=== PATIENT | male | born 1925 | race Caucasian/White ===

== ENCOUNTER 2017-02-07 10:57 | Emergency (ER) | payer MEDICARE, MEDICAID ==
[2017-02-07 11:12] VITALS: BP 158/94
[2017-02-07] MEDS ORDERED: Albuterol 0.083% 2.5 MG/3 ML Neb Soln NEB ONE (11:24)
--- NOTE | 2017-02-07 11:30 | EDM.PDOC ---
ED HPI GENERAL MEDICAL PROBLEM - General Chief Complaint: Respiratory Problem Stated Complaint: DIFFICULTY BREATHING Time Seen by Provider: 02/07/17 11:26 Source of Information: Reports: Patient, Family (son) History Limitations: Reports: No Limitations - History of Present Illness INITIAL COMMENTS - FREE TEXT/NARRATIVE: Pt of [facility] in [facility]. With cough since , now worsening. Pt is more short of breath. With fever. Appetite down. Coughing up phlegm, Onset: Sudden Onset Date: 02/04/17 Duration: Getting Worse Improves with: Reports: None Worsens with: Reports: Movement Associated Symptoms: Reports: Cough, Fever/Chills, Headaches, Shortness of Breath - Related Data Allergies Allergy/AdvReac Type Severity Reaction Status Date / Time Sulfa (Sulfonamide Allergy Rash Verified 08/01/16 09:26 Antibiotics) Home Meds: Home Meds Ascorbic Acid 500 mg PO BID 01/22/15 [History] Digoxin [Lanoxin] 125 mcg PO DAILY 01/22/15 [History] Finasteride [Proscar] 5 mg PO DAILY 01/22/15 [History] Glucosamine Sulfate 1,500 mg PO BID 01/22/15 [History] Tamsulosin HCl 0.4 mg PO DAILY 01/22/15 [History] Triamcinolone Acetonide [Triamcinolone Acetonide 0.1% Oint] 1 film TOP BID PRN 01/22/15 [History] Calcium Carbonate/Vitamin D3 [Calcium 600-Vit D3 400 Tablet] 1 tab PO DAILY [History] Furosemide 10 mg PO DAILY 03/12/16 [History] Warfarin Sodium 1 tab PO ASDIRECTED 03/12/16 [History] Warfarin [Coumadin] 1 tab PO ASDIRECTED 03/12/16 [History] Calcium Carbonate/Vitamin D3 [Calcium 600-Vit D3 800 Tablet] 1 each PO DAILY 09/04 [History] Cayenne 40,000 units PO BID 08/01/16 [History] Acetaminophen [Tylenol] 650 mg PO Q6H 02/07/17 [History] Ascorbic Acid [Vitamin C] 500 mg PO BID 02/07/17 [History] Ibuprofen [Motrin] 600 mg PO Q6H PRN 02/07/17 [History] Ondansetron [Zofran ODT] 4 mg PO Q8HR PRN 02/07/17 [History] Oxybutynin [Oxybutynin ER] 5 mg PO DAILY 02/07/17 [History] Polyethylene Glycol 3350 [Miralax] 17 gm PO 02/07/17 [History] Ranitidine HCl 300 mg PO DAILY 02/07/17 [History] Past Medical History HEENT History: Reports: Hard of Hearing, Impaired Vision, Other (See Below) Other HEENT History: hearing aids bilateral ears Cardiovascular History: Reports: Afib, CAD, Heart Murmur, [place], Pacemaker Other Cardiovascular History: Edema Genitourinary History: Reports: BPH, Retention, Urinary Musculoskeletal History: Reports: Other (See Below) Other Musculoskeletal History: chronic fatigue Neurological History: Reports: Other (See Below) Other Neuro History: cva Psychiatric History: Reports: Dementia Oncologic (Cancer) History: Reports: Prostate - Infectious Disease History Infectious Disease History: Reports: Rheumatic Fever, Shingles Other Infectious Disease History: unknown - Past Surgical History HEENT Surgical History: Reports: Cataract Surgery, Tonsillectomy GI Surgical History: Reports: Colonoscopy Social & Family History - Family History Family Medical History: Unobtainable - Tobacco Use Smoking Status *Q: Never Smoker Second Hand Smoke Exposure: No - Caffeine Use Caffeine Use: Reports: Tea - Alcohol Use Days Per Week of Alcohol Use: 0 - Recreational Drug Use Recreational Drug Use: No - Living Situation & Occupation Living situation: Reports: Assisted Living Occupation: Retired ED ROS GENERAL - Review of Systems Review Of Systems: See Below Constitutional: Reports: Fever, Chills, Decreased Appetite HEENT: Reports: Rhinitis, Sinus Problem Respiratory: Reports: Shortness of Breath, Wheezing, Cough, Sputum Cardiovascular: Reports: No Symptoms GI/Abdominal: Reports: No Symptoms Musculoskeletal: Reports: No Symptoms Skin: Reports: No Symptoms Neurological: Reports: No Symptoms Psychiatric: Reports: No Symptoms ED EXAM, GENERAL - Physical Exam Exam: See Below Exam Limited By: No Limitations General Appearance: Alert, WD/WN, No Apparent Distress Ears: Normal External Exam, Normal Canal, Hearing Grossly Normal, Normal TMs Ear Exam: Bilateral Ear: Auricle Normal, Canal Normal, TM normal Nose: Normal Inspection, Normal Mucosa, No Blood, Clear Rhinorrhea Throat/Mouth: Normal Inspection, Normal Lips, Normal Teeth, Normal Gums, Normal Oropharynx, Normal Voice, No Airway Compromise Head: Atraumatic, Normocephalic Neck: Normal Inspection, Supple, Non-Tender, Full Range of Motion Respiratory/Chest: Rhonchi (throughout) Cardiovascular: Normal Peripheral Pulses, Regular Rate, Rhythm, No Edema, No Gallop, No JVD, No Murmur, No Rub Extremities: Normal Inspection, Normal Range of Motion, Non-Tender, Normal Capillary Refill, No Pedal Edema Neurological: Alert, Oriented, CN II-XII Intact, Normal Cognition, Normal Gait, Normal Reflexes, No Motor/Sensory Deficits Skin Exam: Warm, Dry, Intact, Normal Color, No Rash Course - Vital Signs Last Recorded V/S: Last Vital Signs Temp 98.6 F 02/07/17 11:08 Pulse 103 H 02/07/17 11:08 Resp 28 H 02/07/17 11:08 BP 158/94 H 02/07/17 11:08 Pulse Ox 95 02/07/17 11:08 - Orders/Labs/Meds Orders: Active Orders 24 hr Category Date Time Status RT Aerosol Therapy [RC] ASDIRECTED Care 02/07/17 11:24 Active RT Aerosol Therapy [RC] ASDIRECTED Care 02/07/17 13:11 Active Chest 2V [CR] Stat Exams 02/07/17 11:25 Taken CULTURE RESPIRATORY + SMEAR [RM] Stat Lab 02/07/17 11:49 Results Albuterol/Ipratropium [DuoNeb 3.0-0.5 MG/3 ML] Med 02/07/17 13:11 Once 3 ml NEB ONETIME ONE Medication Orders Albuterol/Ipratropium (Duoneb 3.0-0.5 Mg/3 Ml) 3 ml NEB ONETIME ONE Stop: 02/07/17 13:12 Labs: Laboratory Tests 02/07/17 02/07/17 02/07/17 Range/Units 11:24 11:25 11:25 WBC 9.8 (4.5-11.0) K/uL RBC 4.08 L (4.30-5.90) M/uL Hgb 12.6 (12.0-15.0) g/dL Hct 38.3 L (40.0-54.0) % MCV 94 (80-98) fL MCH 31 (27-31) pg MCHC 33 (32-36) % Plt Count 275 (150-400) K/uL Neut % (Auto) 81 H (36-66) % Lymph % (Auto) 8 L (24-44) % [place] % (Auto) 10 H (2-6) % Eos % (Auto) 1 L (2-4) % Baso % (Auto) 0 (0-1) % PT 37.4 H (9.5-12.0) sec INR 3.40 H (0.80-1.20) Sodium 136 L (140-148) mmol/L Potassium 4.1 (3.6-5.2) mmol/L Chloride 99 L (100-108) mmol/L Carbon Dioxide 26 (21-32) mmol/L Anion Gap 15.1 H (5.0-14.0) mmol/L BUN 15 (7-18) mg/dL Creatinine 1.1 (0.8-1.3) mg/dL Est Cr Clr Drug Dosing 47.01 mL/min Estimated GFR (MDRD) > 60 (>60) Glucose 131 H (74-106) mg/dL Calcium 8.0 L (8.5-10.1) mg/dL Meds: Medications Generic Name Dose Route Start Last Admin Trade Name Freq PRN Reason Stop Dose Admin Albuterol/Ipratropium 3 ml 02/07/17 13:11 Duoneb 3.0-0.5 Mg/3 Ml NEB 02/07/17 13:12 ONETIME ONE Discontinued Medications Generic Name Dose Route Start Last Admin Trade Name Freq PRN Reason Stop Dose Admin Albuterol 2.5 mg 02/07/17 11:24 02/07/17 11:49 Proventil Neb Soln NEB 02/07/17 11:25 2.5 mg ONETIME ONE Administration Ceftriaxone Sodium 1 gm 02/07/17 12:07 02/07/17 12:34 Rocephin IM 02/07/17 12:08 Not Given ONETIME ONE Ceftriaxone Sodium 1 gm/ 0 gm 02/07/17 12:28 02/07/17 12:34 Lidocaine HCl 2.1 ml IM 02/07/17 12:29 1 inj ONETIME ONE Administration Methylprednisolone Sodium Succinate 125 mg 02/07/17 12:08 02/07/17 12:35 Solu-Medrol IM 02/07/17 12:09 125 mg ONETIME ONE Administration Departure - Departure Time of Disposition: 13:19 Disposition: Home, Self-Care 01 Clinical Impression: Pneumonia Qualifiers: Pneumonia type: due to unspecified organism Laterality: right Lung location: lower lobe of lung Qualified Code(s): J18.1 - Lobar pneumonia, unspecified organism - Discharge Information Instructions: Community-Acquired Pneumonia, Adult, [id number] Referrals: PCP,None [Primary Care Provider] - Forms: ED Department Discharge Additional Instructions: Chest xray shows right lower lobe pneumonia. Pt with oxygen saturation of 93-95 % while in the ER. CBC normal with elevated monocytes. INR slightly elevated. Electrolytes show mild hyponatremia. Pt responds well to Albuterol nebulizer UD. Able to cough up large amounts of clear, thick sputum. Culture pending. Rocephin 1gm IM given. Solumedrol 125mg IM given. Duoneb given prior to discharge. Pt to return to assisted living with Albuterol neb treatments QID x 2 weeks, then BID x 2 weeks, then daily x 1 week then DC, Zpak as directed x 5 days to start tomorrow. Staff will need to monitor for worsening shortness of breath or dehydration. Increase fluids. May use Robitussin AC 1 tsp QID prn cough as a suppressant as well. Will need to reduce Coumadin to 5mg on Wednesday and Wednesday with 2.5mg on other days of the week and repeat INR in 2 weeks. Discussed plan of care with family. - Problem List & Annotations (1) Pneumonia SNOMED Code(s): 647825287 Code(s): J18.9 - PNEUMONIA, UNSPECIFIED ORGANISM Status: Acute Priority: Medium Current Visit: Yes Qualifiers: Pneumonia type: due to unspecified organism Laterality: right Lung location: lower lobe of lung Qualified Code(s): J18.1 - Lobar pneumonia, unspecified organism - My Orders Last 24 Hours: My Active Orders 02/07/17 11:24 RT Aerosol Therapy [RC] ASDIRECTED 02/07/17 11:25 Chest 2V [CR] Stat 02/07/17 11:49 CULTURE RESPIRATORY + SMEAR [RM] Stat 02/07/17 13:11 RT Aerosol Therapy [RC] ASDIRECTED Albuterol/Ipratropium [DuoNeb 3.0-0.5 MG/3 ML] 3 ml NEB ONETIME ONE - Assessment/Plan Last 24 Hours: My Active Orders 02/07/17 11:24 RT Aerosol Therapy [RC] ASDIRECTED 02/07/17 11:25 Chest 2V [CR] Stat 02/07/17 11:49 CULTURE RESPIRATORY + SMEAR [RM] Stat 02/07/17 13:11 RT Aerosol Therapy [RC] ASDIRECTED Albuterol/Ipratropium [DuoNeb 3.0-0.5 MG/3 ML] 3 ml NEB ONETIME ONE
[2017-02-07] MEDS ORDERED: cefTRIAXone 1 GM Vial IM ONE (12:07)
[2017-02-07] MEDS ORDERED: methylPREDNISolone Sodium Succinate 125 MG/2 ML SDV IM ONE (12:08)
[2017-02-07] MEDS ORDERED: cefTRIAXone 1 GM, Lidocaine 1% 2.1 ML IM ONE ×2 (12:28)
[2017-02-07] MEDS ORDERED: Albuterol/Ipratropium 3.0-0.5 MG/3 ML Neb Soln NEB ONE (13:11)
--- NOTE | 2017-02-08 08:34 | CR ---
Mild cardiomegaly. Emphysematous change. Slight hazy density at the cardiac location only on the lat eral view could relate to developing infiltrate or atelectasis.
== END 2017-02-07 14:11 | disposition home or self-care (01) ==
LOC: JP.ED 10:57
DX: J18.1 Lobar pneumonia, unspecified organism (principal); I48.91 Unspecified atrial fibrillation; I25.10 Atherosclerotic heart disease of native coronary artery without angina pectoris; I25.2 Old myocardial infarction; Z88.5 Allergy status to narcotic agent; Z79.01 Long term (current) use of anticoagulants; Z79.899 Other long term (current) drug therapy; Z98.49 Cataract extraction status, unspecified eye; Z98.890 Other specified postprocedural states; Z95.0 Presence of cardiac pacemaker
CPT/HCPCS: 36415; 71020; 80048; 85025; 85610; 87070; 87205; 94640; 96372; 99284; J0696; J2930; J7620

== ENCOUNTER 2017-02-09 09:02 | Inpatient (IN) | payer MEDICARE, MEDICAID ==
[2017-02-09] MEDS ORDERED: Lactated Ringers 1,000 ML IV ONE ×3 (09:30→16:43)
[2017-02-09] MEDS ORDERED: Sodium Chloride 0.9% 10 ML Syringe FLUSH PRN (09:30)
[2017-02-09] MEDS ORDERED: Albuterol/Ipratropium 3.0-0.5 MG/3 ML Neb Soln NEB ONE (09:34)
--- NOTE | 2017-02-09 09:39 | EDM.PDOC ---
ED HPI GENERAL MEDICAL PROBLEM - General Chief Complaint: Respiratory Problem Stated Complaint: DIFFICULTY BREATHING Time Seen by Provider: 02/09/17 09:20 Source of Information: Reports: Patient, Family, Old Records, RN Notes Reviewed History Limitations: Reports: No Limitations - History of Present Illness INITIAL COMMENTS - FREE TEXT/NARRATIVE: 89-year-old gentleman presents emergency department day complaint of increasing shortness of breath. He was evaluated in the emergency department 2 days ago and his diagnosis of early pneumonia started on azithromycin, received 1 g Rocephin and 125 mg of Solu-Medrol. He states he has been able take the antibiotics however he is producing more phlegm more short of breath and more wheezing, denies any fevers, CURB 65 score was 1 at that time - Related Data Allergies Allergy/AdvReac Type Severity Reaction Status Date / Time Sulfa (Sulfonamide Allergy Rash Verified 08/01/16 09:26 Antibiotics) Home Meds: Home Meds Ascorbic Acid 500 mg PO BID 01/22/15 [History] Digoxin [Lanoxin] 125 mcg PO DAILY 01/22/15 [History] Finasteride [Proscar] 5 mg PO DAILY 01/22/15 [History] Glucosamine Sulfate 1,500 mg PO BID 01/22/15 [History] Tamsulosin HCl 0.4 mg PO DAILY 01/22/15 [History] Triamcinolone Acetonide [Triamcinolone Acetonide 0.1% Oint] 1 film TOP BID PRN 01/22/15 [History] Calcium Carbonate/Vitamin D3 [Calcium 600-Vit D3 400 Tablet] 1 tab PO DAILY [History] Furosemide 10 mg PO DAILY 03/12/16 [History] Warfarin Sodium 1 tab PO ASDIRECTED 03/12/16 [History] Warfarin [Coumadin] 1 tab PO ASDIRECTED 03/12/16 [History] Calcium Carbonate/Vitamin D3 [Calcium 600-Vit D3 800 Tablet] 1 each PO DAILY 09/04 [History] Cayenne 40,000 units PO BID 08/01/16 [History] Acetaminophen [Tylenol] 650 mg PO Q6H 02/07/17 [History] Ascorbic Acid [Vitamin C] 500 mg PO BID 02/07/17 [History] Ibuprofen [Motrin] 600 mg PO Q6H PRN 02/07/17 [History] Ondansetron [Zofran ODT] 4 mg PO Q8HR PRN 02/07/17 [History] Oxybutynin [Oxybutynin ER] 5 mg PO DAILY 02/07/17 [History] Ranitidine HCl 300 mg PO DAILY 02/07/17 [History] Azithromycin [Azithromycin] 02/09/17 [History] Past Medical History HEENT History: Reports: Hard of Hearing, Impaired Vision, Other (See Below) Other HEENT History: hearing aids bilateral ears Cardiovascular History: Reports: Afib, CAD, Heart Murmur, [place], Pacemaker Other Cardiovascular History: Edema Genitourinary History: Reports: BPH, Retention, Urinary Musculoskeletal History: Reports: Other (See Below) Other Musculoskeletal History: chronic fatigue Neurological History: Reports: Other (See Below) Other Neuro History: cva Psychiatric History: Reports: Dementia Oncologic (Cancer) History: Reports: Prostate - Infectious Disease History Infectious Disease History: Reports: Rheumatic Fever, Shingles Other Infectious Disease History: unknown - Past Surgical History HEENT Surgical History: Reports: Cataract Surgery, Tonsillectomy GI Surgical History: Reports: Colonoscopy Social & Family History - Family History Family Medical History: Unobtainable - Tobacco Use Smoking Status *Q: Never Smoker Second Hand Smoke Exposure: No - Caffeine Use Caffeine Use: Reports: Coffee - Alcohol Use Days Per Week of Alcohol Use: 0 - Recreational Drug Use Recreational Drug Use: No - Living Situation & Occupation Living situation: Reports: Assisted Living Occupation: Retired ED ROS GENERAL - Review of Systems Review Of Systems: See Below Constitutional: Denies: Fever, Chills HEENT: Reports: No Symptoms Respiratory: Reports: Shortness of Breath, Wheezing, Cough, Sputum Cardiovascular: Reports: Dyspnea on Exertion. Denies: Chest Pain GI/Abdominal: Reports: No Symptoms : Reports: No Symptoms Musculoskeletal: Reports: No Symptoms Skin: Reports: No Symptoms Neurological: Reports: No Symptoms Psychiatric: Reports: No Symptoms ED EXAM, GENERAL - Physical Exam Exam: See Below Free Text/Narrative:: General: Elderly male, mild respiratory distress audibly wheezing, alert HEENT : head is atraumatic normocephalic, eyes pupils equal round reactive to light, sclera clear no conjunctivitis appreciated. Ears hearing aids in place bilaterally. Nose no septal deviation, nares are clear, no blood present. Mouth mucosa is moist and pink no erythema or exudate noted in soft palate, tongue is midline uvula is midline, dentition is poor. Neck: Supple no thyromegaly no tracheal deviation. Nodes: Cervical nodes subclavicular nodes nontender no palpable lymphadenopathy noted. Lungs: Rhonchi with inspiratory next Tory wheezing throughout all lung thompson CV: Difficult to appreciate S1 and S2 secondary to wheezing Abdomen: Soft, nontender, no palpable masses or organomegaly appreciated, no distention no guarding bowel sounds are present, . Neuro: Cranial nerves II through XII grossly intact Skin: Warm and dry, intact Extremities: +1 pitting edema appreciated lower extremities bilaterally Course - Vital Signs Last Recorded V/S: Last Vital Signs Temp 98.7 F 02/09/17 09:14 Pulse 123 H 02/09/17 09:14 Resp 22 H 02/09/17 09:14 BP 133/93 H 02/09/17 09:14 Pulse Ox 93 L 02/09/17 09:14 - Orders/Labs/Meds Orders: Active Orders 24 hr Category Date Time Status EKG Documentation Completion [RC] ASDIRECTED Care 02/09/17 10:31 Ordered Peripheral IV Care [RC] . DIRECTED Care 02/09/17 09:32 Active RT Aerosol Therapy [RC] ASDIRECTED Care 02/09/17 09:34 Active CULTURE BLOOD [BC] Urgent Lab 02/09/17 09:40 Received CULTURE BLOOD [BC] Urgent Lab 02/09/17 09:45 Received UA W/MICROSCOPIC [URIN] Stat Lab 02/09/17 09:30 Uncollected Lactated Ringers [Ringers, Lactated] 1,000 ml Med 02/09/17 09:30 Active IV ASDIRECTED Levofloxacin/Dextrose 5%-Water [Levaquin in D5W 750 MG/ Med 02/09/17 11:00 Ordered 150 ML] 750 mg Premix Bag 1 bag IV Q24H Sodium Chloride 0.9% [Saline Flush] Med 02/09/17 09:30 Active 10 ml FLUSH ASDIRECTED PRN Blood Culture x2 Reflex Set [OM.PC] Urgent Oth 02/09/17 09:32 Ordered Peripheral IV Insertion Adult [OM.PC] Urgent Oth 02/09/17 09:30 Ordered EKG 12 Lead [EK] Stat Ther 02/09/17 10:30 Stop Req Medication Orders Lactated Ringer's (Ringers, Lactated) 1,000 mls @ 125 mls/hr IV ASDIRECTED ONE Stop: 02/09/17 17:29 Last Admin: 02/09/17 09:58 Dose: 125 mls/hr Levofloxacin/Dextrose 750 mg/ (Premix) 150 mls @ 100 mls/hr IV Q24H BJORN Sodium Chloride (Saline Flush) 10 ml FLUSH ASDIRECTED PRN PRN Reason: Keep Vein Open Last Admin: 02/09/17 09:43 Dose: 10 ml Labs: Laboratory Tests 02/09/17 02/09/17 02/09/17 Range/Units 09:45 09:45 09:45 WBC 11.6 H (4.5-11.0) K/uL RBC 4.21 L (4.30-5.90) M/uL Hgb 13.1 (12.0-15.0) g/dL Hct 39.5 L (40.0-54.0) % MCV 94 (80-98) fL MCH 31 (27-31) pg MCHC 33 (32-36) % Plt Count 316 (150-400) K/uL Neut % (Auto) 88 H (36-66) % Lymph % (Auto) 3 L (24-44) % [place] % (Auto) 8 H (2-6) % Eos % (Auto) 0 L (2-4) % Baso % (Auto) 0 (0-1) % PT 35.5 H (9.5-12.0) sec INR 3.23 H (0.80-1.20) APTT 43.8 H (27.0-36.0) sec Sodium 132 L (140-148) mmol/L Potassium 4.9 (3.6-5.2) mmol/L Chloride 95 L (100-108) mmol/L Carbon Dioxide 27 (21-32) mmol/L Anion Gap 14.9 H (5.0-14.0) mmol/L BUN 23 H D (7-18) mg/dL Creatinine 1.2 (0.8-1.3) mg/dL Est Cr Clr Drug Dosing 43.20 mL/min Estimated GFR (MDRD) 57 L (>60) Glucose 140 H (74-106) mg/dL Lactic Acid (0.4-2.0) mmol/L Calcium 8.3 L (8.5-10.1) mg/dL Total Bilirubin 0.7 (0.2-1.0) mg/dL AST 55 H D (15-37) U/L ALT 50 D (12-78) U/L Alkaline Phosphatase 79 (46-116) U/L Troponin I (0.000-0.056) ng/mL Total Protein 7.2 (6.4-8.2) g/dL Albumin 3.3 L (3.4-5.0) g/dL Globulin 3.9 H (2.3-3.5) g/dL Albumin/Globulin Ratio 0.9 L (1.2-2.2) 02/09/17 02/09/17 Range/Units 09:45 09:45 WBC (4.5-11.0) K/uL RBC (4.30-5.90) M/uL Hgb (12.0-15.0) g/dL Hct (40.0-54.0) % MCV (80-98) fL MCH (27-31) pg MCHC (32-36) % Plt Count (150-400) K/uL Neut % (Auto) (36-66) % Lymph % (Auto) (24-44) % [place] % (Auto) (2-6) % Eos % (Auto) (2-4) % Baso % (Auto) (0-1) % PT (9.5-12.0) sec INR (0.80-1.20) APTT (27.0-36.0) sec Sodium (140-148) mmol/L Potassium (3.6-5.2) mmol/L Chloride (100-108) mmol/L Carbon Dioxide (21-32) mmol/L Anion Gap (5.0-14.0) mmol/L BUN (7-18) mg/dL Creatinine (0.8-1.3) mg/dL Est Cr Clr Drug Dosing mL/min Estimated GFR (MDRD) (>60) Glucose (74-106) mg/dL Lactic Acid 3.7 H (0.4-2.0) mmol/L Calcium (8.5-10.1) mg/dL Total Bilirubin (0.2-1.0) mg/dL AST (15-37) U/L ALT (12-78) U/L Alkaline Phosphatase (46-116) U/L Troponin I 3.597 H* (0.000-0.056) ng/mL Total Protein (6.4-8.2) g/dL Albumin (3.4-5.0) g/dL Globulin (2.3-3.5) g/dL Albumin/Globulin Ratio (1.2-2.2) Meds: Medications Generic Name Dose Route Start Last Admin Trade Name Freq PRN Reason Stop Dose Admin Lactated Ringer's 1,000 mls @ 125 mls/hr 02/09/17 09:30 02/09/17 09:58 Ringers, Lactated IV 02/09/17 17:29 125 mls/hr ASDIRECTED ONE Administration Levofloxacin/Dextrose 750 mg/ 150 mls @ 100 mls/hr 02/09/17 11:00 Premix IV Q24H BJORN Sodium Chloride 10 ml 02/09/17 09:30 02/09/17 09:43 Saline Flush FLUSH 10 ml ASDIRECTED PRN Administration Keep Vein Open Discontinued Medications Generic Name Dose Route Start Last Admin Trade Name Freq PRN Reason Stop Dose Admin Albuterol/Ipratropium 3 ml 02/09/17 09:34 02/09/17 09:43 Duoneb 3.0-0.5 Mg/3 Ml NEB 02/09/17 09:35 3 ml ONETIME ONE Administration Departure - Departure Time of Disposition: 10:57 Disposition: Home, Self-Care 01 Condition: poor Clinical Impression: Elevated troponin Pneumonia Qualifiers: Pneumonia type: due to unspecified organism Laterality: right Lung location: lower lobe of lung Qualified Code(s): J18.1 - Lobar pneumonia, unspecified organism - Discharge Information Forms: ED Department Discharge - My Orders Last 24 Hours: My Active Orders 02/09/17 09:30 UA W/MICROSCOPIC [URIN] Stat Lactated Ringers [Ringers, Lactated] 1,000 ml IV ASDIRECTED Sodium Chloride 0.9% [Saline Flush] 10 ml FLUSH ASDIRECTED PRN Peripheral IV Insertion Adult [OM.PC] Urgent 02/09/17 09:32 Peripheral IV Care [RC] . DIRECTED Blood Culture x2 Reflex Set [OM.PC] Urgent 02/09/17 09:34 RT Aerosol Therapy [RC] ASDIRECTED 02/09/17 09:40 CULTURE BLOOD [BC] Urgent 02/09/17 09:45 CULTURE BLOOD [BC] Urgent 02/09/17 10:30 EKG 12 Lead [EK] Stat 02/09/17 10:31 EKG Documentation Completion [RC] ASDIRECTED 02/09/17 11:00 Levofloxacin/Dextrose 5%-Water [Levaquin in D5W 750 MG/150 ML] 750 mg Premix Bag 1 bag IV Q24H - Assessment/Plan Last 24 Hours: My Active Orders 02/09/17 09:30 UA W/MICROSCOPIC [URIN] Stat Lactated Ringers [Ringers, Lactated] 1,000 ml IV ASDIRECTED Sodium Chloride 0.9% [Saline Flush] 10 ml FLUSH ASDIRECTED PRN Peripheral IV Insertion Adult [OM.PC] Urgent 02/09/17 09:32 Peripheral IV Care [RC] . DIRECTED Blood Culture x2 Reflex Set [OM.PC] Urgent 02/09/17 09:34 RT Aerosol Therapy [RC] ASDIRECTED 02/09/17 09:40 CULTURE BLOOD [BC] Urgent 02/09/17 09:45 CULTURE BLOOD [BC] Urgent 02/09/17 10:30 EKG 12 Lead [EK] Stat 02/09/17 10:31 EKG Documentation Completion [RC] ASDIRECTED 02/09/17 11:00 Levofloxacin/Dextrose 5%-Water [Levaquin in D5W 750 MG/150 ML] 750 mg Premix Bag 1 bag IV Q24H Plan: Assessment Acuity = acute Site and laterality = community-acquired pneumonia complicated with sepsis from a respiratory source suspicious for non-ST elevation myocardial infarction complicated patient with known history of atrial fibrillation on chronic anticoagulation and known history of coronary artery disease Etiology = bacterial source Manifestations = dyspnea Location of injury = home Lab values = WBC elevated 11.6 consistent leukocytosis INR supratherapeutic at 3.23 sodium low at 132 consistent hyponatremia lactic acid elevated at 2.7 consistent lactic acidosis AST elevated at 55 consistent elevated liver enzymes troponin elevated 3.597 of unclear etiology albumin low at 2.3 consistent hypoalbuminemia Plan Discussed the case with hospitalist personal care aide he agreed to come and evaluate the patient ED for admission Patient was in agreement with the plan all questions were answered, This note was dictated using [employer] voice recognition software please call with any questions.
--- NOTE | 2017-02-09 10:13 | CR ---
Moderate cardiomegaly. Pacemaker on the left. New airspace disease within the right lung base medial ly and right upper lobe which can indicate pneumonia.
[2017-02-09] MEDS ORDERED: Levofloxacin/Dextrose 5%-Water 750 MG in Premix Bag 1 BAG IV SCH (11:00)
[2017-02-09] MEDS ORDERED: Aspirin 81 MG Tab.Chew PO ONE (12:01)
--- NOTE | 2017-02-09 12:20 | PCM.HP ---
H&P History of Present Illness - General Date of Service: 02/09/17 Admit Problem/Dx: Admission Diagnosis/Problem Admission Diagnosis/Problem Pneumonia Source of Information: Patient, Family, Provider History Limitations: Reports: No Limitations - History of Present Illness Initial Comments - Free Text/Narative: Franky presents to the emergency room today with concerns regarding fever, cough and shortness of breath. Symptoms started over the weekend and he was seen in the emergency room. Workup at that time was unimpressive and he was started on MARIO azithromycin. Despite the outpatient antibiotic therapy his respiratory status has declined. He has become progressively short of breath over the past 2 days. He is now short of breath even at rest. He has noticed wheezing. His cough has become productive initially for yellow sputum but this morning he had blood in his sputum. He continues to have fevers and chills. No complaints of chest pain at this time. Energy and appetite are both decreased. He mentions some mild to moderate epigastric abdominal pain that has been present for a few months and seems to be worse the past few days. Stools have been on the low side recently. No lower extremity edema or orthopnea. Possible sick contacts at the assisted living facility. Workup in the emergency room remarkable for right upper and lower lobe pneumonia with sepsis syndrome as evidenced by tachypnea, tachycardia and elevated lactic acid level. He also has a troponin level of 3.5 consistent with a non-ST elevation myocardial infarction. We did review his advanced directive at this time he wishes to receive inpatient hospitalization and management. He will be admitted to the intensive care unit. - Related Data Allergies/Adverse Reactions: Allergies Allergy/AdvReac Type Severity Reaction Status Date / Time Sulfa (Sulfonamide Allergy Rash Verified 08/01/16 09:26 Antibiotics) Home Medications: Home Meds Ascorbic Acid 500 mg PO BID 01/22/15 [History] Digoxin [Lanoxin] 125 mcg PO DAILY 01/22/15 [History] Finasteride [Proscar] 5 mg PO DAILY 01/22/15 [History] Glucosamine Sulfate 1,500 mg PO BID 01/22/15 [History] Tamsulosin HCl 0.4 mg PO DAILY 01/22/15 [History] Triamcinolone Acetonide [Triamcinolone Acetonide 0.1% Oint] 1 film TOP BID PRN 01/22/15 [History] Calcium Carbonate/Vitamin D3 [Calcium 600-Vit D3 400 Tablet] 1 tab PO DAILY [History] Furosemide 10 mg PO DAILY 03/12/16 [History] Warfarin Sodium 1 tab PO ASDIRECTED 03/12/16 [History] Warfarin [Coumadin] 1 tab PO ASDIRECTED 03/12/16 [History] Calcium Carbonate/Vitamin D3 [Calcium 600-Vit D3 800 Tablet] 1 each PO DAILY 09/04 [History] Cayenne 40,000 units PO BID 08/01/16 [History] Acetaminophen [Tylenol] 650 mg PO Q6H 02/07/17 [History] Ascorbic Acid [Vitamin C] 500 mg PO BID 02/07/17 [History] Ibuprofen [Motrin] 600 mg PO Q6H PRN 02/07/17 [History] Ondansetron [Zofran ODT] 4 mg PO Q8HR PRN 02/07/17 [History] Oxybutynin [Oxybutynin ER] 5 mg PO DAILY 02/07/17 [History] Ranitidine HCl 300 mg PO DAILY 02/07/17 [History] Azithromycin [Azithromycin] 02/09/17 [History] Past Medical History HEENT History: Reports: Hard of Hearing, Impaired Vision, Other (See Below) Other HEENT History: hearing aids bilateral ears Cardiovascular History: Reports: Afib, CAD, Heart Murmur, VT, Pacemaker Other Cardiovascular History: Edema Genitourinary History: Reports: BPH, Retention, Urinary Musculoskeletal History: Reports: Other (See Below) Other Musculoskeletal History: chronic fatigue Neurological History: Reports: Other (See Below) Other Neuro History: cva Psychiatric History: Reports: Dementia Oncologic (Cancer) History: Reports: Prostate - Infectious Disease History Infectious Disease History: Reports: Rheumatic Fever, Shingles Other Infectious Disease History: unknown - Past Surgical History HEENT Surgical History: Reports: Cataract Surgery, Tonsillectomy GI Surgical History: Reports: Colonoscopy Social & Family History - Family History Family Medical History: Unobtainable - Tobacco Use Smoking Status *Q: Never Smoker Second Hand Smoke Exposure: No - Caffeine Use Caffeine Use: Reports: Coffee - Alcohol Use Days Per Week of Alcohol Use: 0 - Recreational Drug Use Recreational Drug Use: No - Living Situation & Occupation Living situation: Reports: Assisted Living Occupation: Retired H&P Review of Systems - Review of Systems: Review Of Systems: See Below Free Text/Narrative: A complete 12 point review of systems was obtained. Pertinent positives and negatives are noted in the history of present illness. All other systems were reviewed and were negative except as noted. Exam - Exam Exam: See Below - Vital Signs Vital Signs: Last Vital Signs Temp 37.1 C 02/09/17 09:14 Pulse 134 H 02/09/17 11:34 Resp 27 H 02/09/17 09:39 BP 143/86 H 02/09/17 11:34 Pulse Ox 93 L 02/09/17 11:34 Weight: 88 kg - Exam Quality Assessment: No: Supplemental Oxygen, Urinary Catheter General: Alert, Oriented, Cooperative, Mild Distress HEENT: Conjunctiva Clear, Pupils Equal. No: Mucosa Moist & [place] (dry), Scleral Icterus Neck: Supple, Trachea Midline. No: Lymphadenopathy, Thyromegaly Lungs: Rales (right lower lung), Wheezing (diffuse exp wheezing). No: Normal Respiratory Effort (increased work of breathing ) Cardiovascular: Irregular Rhythm, Tachycardia Abdomen: Normal Bowel Sounds, Soft, Tenderness (epigastrium and mid abdomen ), Hernia (ventral ). No: Distention Back Exam: No: Muscle Spasm, Vertebral Tenderness Extremities: Normal Inspection, Normal Pulses. No: Cyanosis Peripheral Pulses: 2+: Dorsalis Pedis (L), Dorsalis Pedis (R) Skin: Warm, Dry Neuro Extensive - Mental Status: Alert, Oriented x3, Nl Response to Commands Neuro Extensive - Motor, Sensory, Reflexes: CN II-XII Intact. No: Dysarthria, Abnormal Motor, Tremor Psychiatric: Alert, Normal Affect - Patient Data Lab Results last 24 hrs: Laboratory Results - last 24 hr 02/09/17 02/09/17 02/09/17 Range/Units 09:45 09:45 09:45 WBC 11.6 H (4.5-11.0) K/uL RBC 4.21 L (4.30-5.90) M/uL Hgb 13.1 (12.0-15.0) g/dL Hct 39.5 L (40.0-54.0) % MCV 94 (80-98) fL MCH 31 (27-31) pg MCHC 33 (32-36) % Plt Count 316 (150-400) K/uL Neut % (Auto) 88 H (36-66) % Lymph % (Auto) 3 L (24-44) % [place] % (Auto) 8 H (2-6) % Eos % (Auto) 0 L (2-4) % Baso % (Auto) 0 (0-1) % PT 35.5 H (9.5-12.0) sec INR 3.23 H (0.80-1.20) APTT 43.8 H (27.0-36.0) sec Sodium 132 L (140-148) mmol/L Potassium 4.9 (3.6-5.2) mmol/L Chloride 95 L (100-108) mmol/L Carbon Dioxide 27 (21-32) mmol/L Anion Gap 14.9 H (5.0-14.0) mmol/L BUN 23 H D (7-18) mg/dL Creatinine 1.2 (0.8-1.3) mg/dL Est Cr Clr Drug Dosing 43.20 mL/min Estimated GFR (MDRD) 57 L (>60) Glucose 140 H (74-106) mg/dL Lactic Acid (0.4-2.0) mmol/L Calcium 8.3 L (8.5-10.1) mg/dL Total Bilirubin 0.7 (0.2-1.0) mg/dL AST 55 H D (15-37) U/L ALT 50 D (12-78) U/L Alkaline Phosphatase 79 (46-116) U/L Troponin I (0.000-0.056) ng/mL Total Protein 7.2 (6.4-8.2) g/dL Albumin 3.3 L (3.4-5.0) g/dL Globulin 3.9 H (2.3-3.5) g/dL Albumin/Globulin Ratio 0.9 L (1.2-2.2) 02/09/17 02/09/17 Range/Units 09:45 09:45 WBC (4.5-11.0) K/uL RBC (4.30-5.90) M/uL Hgb (12.0-15.0) g/dL Hct (40.0-54.0) % MCV (80-98) fL MCH (27-31) pg MCHC (32-36) % Plt Count (150-400) K/uL Neut % (Auto) (36-66) % Lymph % (Auto) (24-44) % [place] % (Auto) (2-6) % Eos % (Auto) (2-4) % Baso % (Auto) (0-1) % PT (9.5-12.0) sec INR (0.80-1.20) APTT (27.0-36.0) sec Sodium (140-148) mmol/L Potassium (3.6-5.2) mmol/L Chloride (100-108) mmol/L Carbon Dioxide (21-32) mmol/L Anion Gap (5.0-14.0) mmol/L BUN (7-18) mg/dL Creatinine (0.8-1.3) mg/dL Est Cr Clr Drug Dosing mL/min Estimated GFR (MDRD) (>60) Glucose (74-106) mg/dL Lactic Acid 3.7 H (0.4-2.0) mmol/L Calcium (8.5-10.1) mg/dL Total Bilirubin (0.2-1.0) mg/dL AST (15-37) U/L ALT (12-78) U/L Alkaline Phosphatase (46-116) U/L Troponin I 3.597 H* (0.000-0.056) ng/mL Total Protein (6.4-8.2) g/dL Albumin (3.4-5.0) g/dL Globulin (2.3-3.5) g/dL Albumin/Globulin Ratio (1.2-2.2) Result Diagrams: 02/09/17 09:45 02/09/17 09:45 Imaging Impressions last 24 hrs: CXR - images personally reviewed - right upper and right lower lung infiltrates. heart size is normal. no effusions. increased infiltrate compared to CXR from 02/07 *Q Meaningful Use (ADM) - VTE *Q VTE Criteria *Q: - VTE Risk Assess *Q Each Risk Factor Represents 1 Point: Acute Myocardial Infarction, Less than 1 Month, Sepsis, Less than 1 Month Total Score 1 Point Risk Factors: 2 Each Risk Factor Represents 3 Points: Age 75 Years or Greater Total Score 3 Point Risk Factors: 3 - Stroke *Q Stroke Criteria *Q: - AMI *Q AMI Criteria *Q: - Problem List (1) Pneumonia SNOMED Code(s): 927595157 ICD Code: J18.9 - PNEUMONIA, UNSPECIFIED ORGANISM Status: Acute Priority : Medium Current Visit: Yes Qualifiers: Pneumonia type: due to unspecified organism Laterality: right Lung location: lower lobe of lung Qualified Code(s): J18.1 - Lobar pneumonia, unspecified organism (2) Sepsis SNOMED Code(s): 73145879 ICD Code: A41.9 - SEPSIS, UNSPECIFIED ORGANISM Status: Acute Current Visit: Yes Qualifiers: Sepsis type: sepsis due to unspecified organism Qualified Code(s): A41.9 - Sepsis, unspecified organism (3) Atrial fibrillation with rapid ventricular response SNOMED Code(s): 620301968854441 ICD Code: I48.91 - UNSPECIFIED ATRIAL FIBRILLATION Status: Acute Current Visit: Yes (4) NSTEMI (non-ST elevated myocardial infarction) SNOMED Code(s): 272695507 ICD Code: I21.4 - NON-ST ELEVATION (NSTEMI) MYOCARDIAL INFARCTION Status: Acute Current Visit: Yes Problem List Initiated/Reviewed/Updated: Yes Orders Last 24hrs: Active Orders 24 hr Category Date Time Status EKG Documentation Completion [RC] ASDIRECTED Care 02/09/17 10:31 Active Peripheral IV Care [RC] . DIRECTED Care 02/09/17 09:32 Active RT Aerosol Therapy [RC] ASDIRECTED Care 02/09/17 09:34 Active CULTURE BLOOD [BC] Urgent Lab 02/09/17 09:40 Received CULTURE BLOOD [BC] Urgent Lab 02/09/17 09:45 Received UA W/MICROSCOPIC [URIN] Stat Lab 02/09/17 12:14 Ordered Lactated Ringers [Ringers, Lactated] 1,000 ml Med 02/09/17 09:30 Active IV ASDIRECTED Levofloxacin/Dextrose 5%-Water [Levaquin in D5W 750 MG/ Med 02/09/17 11:00 Active 150 ML] 750 mg Premix Bag 1 bag IV Q24H Sodium Chloride 0.9% [Saline Flush] Med 02/09/17 09:30 Active 10 ml FLUSH ASDIRECTED PRN Blood Culture x2 Reflex Set [OM.PC] Urgent Oth 02/09/17 09:32 Ordered Peripheral IV Insertion Adult [OM.PC] Urgent Oth 02/09/17 09:30 Ordered Resuscitation Status Routine Resus Stat 02/09/17 12:04 Ordered EKG 12 Lead [EK] Stat Ther 02/09/17 10:30 Stop Req Medication Orders Lactated Ringer's (Ringers, Lactated) 1,000 mls @ 125 mls/hr IV ASDIRECTED ONE Stop: 02/09/17 17:29 Last Admin: 02/09/17 09:58 Dose: 125 mls/hr Levofloxacin/Dextrose 750 mg/ (Premix) 150 mls @ 100 mls/hr IV Q24H [facility] Last Admin: 02/09/17 10:56 Dose: 100 mls/hr Sodium Chloride (Saline Flush) 10 ml FLUSH ASDIRECTED PRN PRN Reason: Keep Vein Open Last Admin: 02/09/17 09:43 Dose: 10 ml Assessment/Plan Comment:: Assessment and plan - Right lung pneumonia with sepsis syndrome - both right upper and lower lobes are involved. Evidence for sepsis includes tachycardia, tachypnea and elevated lactic acid level with respiratory infection. I suspect that the NSTEMI is probably a result of the infection as well. Given his age, concomitant myocardial infarction in the severity of the sepsis he is at a high risk for morbidity and mortality from this infection. -Levofloxacin and ceftriaxone -IV fluids -Scheduled and as needed nebs -Repeat lactic acid level -Followup blood cultures -Sputum culture -Supplemental oxygen Non-ST elevation myocardial infarction - I suspect this was caused by the pneumonia and sepsis rather than a primary cardiac event necessarily. He has a significant troponin elevation. No chest pain at this time. Vital signs show a stable blood pressure but elevated heart rate. He is receiving aspirin in the emergency room. He is already anticoagulated with warfarin to I am not going to add an additional anticoagulant. Patient is DO NOT RESUSCITATE and advance directive suggest that he wants limited interventions. -Daily aspirin -Serial troponins levels -Additional medical management including heart rate and blood pressure control Atrial fibrillation with rapid ventricular response - probably a result of the combination pneumonia and myocardial infarction. Hopefully treating the pneumonia, supplementing the oxygen and IV fluids will help with the rate. He may need additional IV rate control such as diltiazem if he does not respond to the above treatments. -Continue beta hunter -Continue digoxin -Cardiac monitoring -Consider diltiazem -Continue anticoagulation Stage III chronic kidney disease - kidney function near baseline at this time. Maintenance issues - - DVT prophylaxis - warfarin - GI prophylaxis - PPI - Nutrition - heart healthy diet - Jimenez catheter - not currently indicated but could be considered CODE STATUS - patient wishes to be full treatment without intubation and without ACLS. His current advance directive suggest that he is comfort cares but he is requesting hospitalization and treatment for his pneumonia, sepsis and non-ST elevation myocardial infarction. Admission justification - This patient will be admitted for inpatient services and is medically appropriate meeting medical necessity for inpatient admission as outlined in my documentation. I reasonably expect the patient will require inpatient services that span a period time over 2 midnights. I reasonably expect this patient to be discharged or transferred within 96 hours after admission to the [facility]. Disposition - anticipate discharge back to the assisted living or possibly the retirement if he survives the hospital stay Primary care physician - Dr Amairani Rodriguez M.D.
[2017-02-09] MEDS ORDERED: Acetaminophen 325 MG Tab PO PRN (12:49)
[2017-02-09] MEDS ORDERED: Ondansetron 4 MG Tab.DIS PO PRN (12:49)
[2017-02-09] MEDS ORDERED: Albuterol 0.083% 2.5 MG/3 ML Neb Soln NEB PRN (12:49)
[2017-02-09] MEDS ORDERED: methylPREDNISolone Sodium Succinate 125 MG/2 ML SDV IVPUSH ONE (13:30)
[2017-02-09] MEDS: cefTRIAXone 2 GM in Sodium Chloride 0.9% 50 ML IV SCH (13:47)
[2017-02-09] MEDS ORDERED: Albuterol/Ipratropium 3.0-0.5 MG/3 ML Neb Soln NEB SCH (15:00)
[2017-02-09] MEDS ORDERED: Nitroglycerin 0.4 MG Tab.SL SL ONE (15:10)
[2017-02-09] MEDS ORDERED: Metoprolol Tartrate 25 MG Tab PO ONE (15:15)
[2017-02-09] MEDS: Levalbuterol HCl 1.25 MG/3 ML Neb NEB PRN (19:45)
[2017-02-09] MEDS: methylPREDNISolone Sodium Succinate 125 MG/2 ML SDV IVPUSH SCH (19:45)
[2017-02-09] MEDS: Diltiazem 100 MG in Sodium Chloride 0.9% 100 ML IV SCH (19:45)
[2017-02-09] MEDS: Metoprolol Tartrate 25 MG Tab PO SCH (21:24)
[2017-02-09] MEDS: Sodium Chloride 0.9% 1,000 ML IV SCH (21:59)
[2017-02-09] MEDS: Levalbuterol HCl 1.25 MG/3 ML Neb NEB SCH (21:59)
[2017-02-10] MEDS: methylPREDNISolone Sodium Succinate 125 MG/2 ML SDV IVPUSH SCH ×4 (01:29→19:44)
[2017-02-10] MEDS: Levalbuterol HCl 1.25 MG/3 ML Neb NEB PRN ×2 (01:30→23:50)
[2017-02-10] MEDS: Diltiazem 100 MG in Sodium Chloride 0.9% 100 ML IV SCH ×3 (05:28→20:42)
[2017-02-10] MEDS: Sodium Chloride 0.9% 1,000 ML IV SCH (05:29)
[2017-02-10] MEDS: Metoprolol Tartrate 25 MG Tab PO SCH ×3 (05:39→22:11)
[2017-02-10] MEDS: Levalbuterol HCl 1.25 MG/3 ML Neb NEB SCH ×4 (07:07→20:43)
[2017-02-10] MEDS ORDERED: Phytonadione ORAL 5mg/5ml Soln Simple Syrup U/D PO ONE (08:37)
--- NOTE | 2017-02-10 08:40 | PCM.PN ---
- General Info Date of Service: 02/10/17 Functional Status: Reports: pain controlled, tolerating diet - Review of Systems General: Reports: Weakness Pulmonary: Reports: shortness of breath, cough Gastrointestinal: Reports: Abdominal pain (mild) Systems Review Comment:: no acute events overnight. Heart rate has improved with the diltiazem infusion. Troponin level peaked at just over 4 and has trended down. Respiratory status has been stable but he has ongoing wheezing. No complaints of abdominal pain or chest pain. Lactic acid level initially increased slightly but has decreased since that time. He says that he feels well. He doesn't endorse a loose and sometimes productive cough. He reports significant shortness of breath even getting out of bed to use the urinal. - Patient Data Vitals - most recent: Last Vital Signs Temp 36.7 C 02/10/17 08:00 Pulse 101 H 02/10/17 07:07 Resp 22 H 02/10/17 08:00 BP 143/94 H 02/10/17 08:00 Pulse Ox 96 02/10/17 08:00 Weight - most recent: 83.522 kg I&O - last 24 hours: Intake & Output 02/09/17 02/10/17 02/10/17 22:59 06:59 14:59 Intake Total 800 2507 Output Total 275 400 Balance 525 2107 Lab Results last 24 hrs: Laboratory Results - last 24 hr 02/09/17 02/09/17 02/09/17 Range/Units 12:16 15:59 15:59 WBC (4.5-11.0) K/uL RBC (4.30-5.90) M/uL Hgb (12.0-15.0) g/dL Hct (40.0-54.0) % MCV (80-98) fL MCH (27-31) pg MCHC (32-36) % Plt Count (150-400) K/uL PT (9.5-12.0) sec INR (0.80-1.20) Sodium (140-148) mmol/L Potassium (3.6-5.2) mmol/L Chloride (100-108) mmol/L Carbon Dioxide (21-32) mmol/L Anion Gap (5.0-14.0) mmol/L BUN (7-18) mg/dL Creatinine (0.8-1.3) mg/dL Est Cr Clr Drug Dosing mL/min Estimated GFR (MDRD) (>60) Glucose (74-106) mg/dL Lactic Acid 3.2 H (0.4-2.0) mmol/L Calcium (8.5-10.1) mg/dL Magnesium (1.8-2.4) mg/dL Troponin I 4.283 H* (0.000-0.056) ng/mL Urine Color Yellow Urine Appearance Slightly cloudy Urine pH 5.0 (4.5-8.0) Ur Specific [place] 1.025 (1.008-1.030) Urine Protein 30 H (NEGATIVE) mg/dL Urine Glucose (UA) Normal (NEGATIVE) mg/dL Urine Ketones 15 H (NEGATIVE) mg/dL Urine Occult Blood Moderate (NEGATIVE) Urine Nitrite Negative (NEGAITVE) Urine Bilirubin Negative (NEGATIVE) Urine Urobilinogen Normal (NORMAL) mg/dL Ur Leukocyte Esterase Negative (NEGATIVE) Urine RBC 0-5 (0-5) Urine WBC 0-5 (0-5) Ur Epithelial Cells Rare Amorphous Sediment Rare Urine Bacteria Rare Urine Mucus Few 02/09/17 02/09/17 02/10/17 Range/Units 21:44 21:44 05:10 WBC (4.5-11.0) K/uL RBC (4.30-5.90) M/uL Hgb (12.0-15.0) g/dL Hct (40.0-54.0) % MCV (80-98) fL MCH (27-31) pg MCHC (32-36) % Plt Count (150-400) K/uL PT (9.5-12.0) sec INR (0.80-1.20) Sodium (140-148) mmol/L Potassium (3.6-5.2) mmol/L Chloride (100-108) mmol/L Carbon Dioxide (21-32) mmol/L Anion Gap (5.0-14.0) mmol/L BUN (7-18) mg/dL Creatinine (0.8-1.3) mg/dL Est Cr Clr Drug Dosing mL/min Estimated GFR (MDRD) (>60) Glucose (74-106) mg/dL Lactic Acid 4.3 H 2.8 H (0.4-2.0) mmol/L Calcium (8.5-10.1) mg/dL Magnesium (1.8-2.4) mg/dL Troponin I 3.251 H* (0.000-0.056) ng/mL Urine Color Urine Appearance Urine pH (4.5-8.0) Ur Specific [place] (1.008-1.030) Urine Protein (NEGATIVE) mg/dL Urine Glucose (UA) (NEGATIVE) mg/dL Urine Ketones (NEGATIVE) mg/dL Urine Occult Blood (NEGATIVE) Urine Nitrite (NEGAITVE) Urine Bilirubin (NEGATIVE) Urine Urobilinogen (NORMAL) mg/dL Ur Leukocyte Esterase (NEGATIVE) Urine RBC (0-5) Urine WBC (0-5) Ur Epithelial Cells Amorphous Sediment Urine Bacteria Urine Mucus 02/10/17 02/10/17 02/10/17 Range/Units 05:10 05:11 05:11 WBC 9.1 (4.5-11.0) K/uL RBC 4.28 L (4.30-5.90) M/uL Hgb 13.2 (12.0-15.0) g/dL Hct 39.5 L (40.0-54.0) % MCV 92 (80-98) fL MCH 31 (27-31) pg MCHC 33 (32-36) % Plt Count 293 (150-400) K/uL PT 55.5 H (9.5-12.0) sec INR 4.98 H* (0.80-1.20) Sodium (140-148) mmol/L Potassium (3.6-5.2) mmol/L Chloride (100-108) mmol/L Carbon Dioxide (21-32) mmol/L Anion Gap (5.0-14.0) mmol/L BUN (7-18) mg/dL Creatinine (0.8-1.3) mg/dL Est Cr Clr Drug Dosing mL/min Estimated GFR (MDRD) (>60) Glucose (74-106) mg/dL Lactic Acid (0.4-2.0) mmol/L Calcium (8.5-10.1) mg/dL Magnesium (1.8-2.4) mg/dL Troponin I 2.788 H* (0.000-0.056) ng/mL Urine Color Urine Appearance Urine pH (4.5-8.0) Ur Specific [place] (1.008-1.030) Urine Protein (NEGATIVE) mg/dL Urine Glucose (UA) (NEGATIVE) mg/dL Urine Ketones (NEGATIVE) mg/dL Urine Occult Blood (NEGATIVE) Urine Nitrite (NEGAITVE) Urine Bilirubin (NEGATIVE) Urine Urobilinogen (NORMAL) mg/dL Ur Leukocyte Esterase (NEGATIVE) Urine RBC (0-5) Urine WBC (0-5) Ur Epithelial Cells Amorphous Sediment Urine Bacteria Urine Mucus 02/10/17 Range/Units 05:11 WBC (4.5-11.0) K/uL RBC (4.30-5.90) M/uL Hgb (12.0-15.0) g/dL Hct (40.0-54.0) % MCV (80-98) fL MCH (27-31) pg MCHC (32-36) % Plt Count (150-400) K/uL PT (9.5-12.0) sec INR (0.80-1.20) Sodium 131 L (140-148) mmol/L Potassium 4.5 (3.6-5.2) mmol/L Chloride 96 L (100-108) mmol/L Carbon Dioxide 25 (21-32) mmol/L Anion Gap 14.5 H (5.0-14.0) mmol/L BUN 21 H (7-18) mg/dL Creatinine 0.9 (0.8-1.3) mg/dL Est Cr Clr Drug Dosing 57.59 mL/min Estimated GFR (MDRD) > 60 (>60) Glucose 178 H (74-106) mg/dL Lactic Acid (0.4-2.0) mmol/L Calcium 8.1 L (8.5-10.1) mg/dL Magnesium 2.2 (1.8-2.4) mg/dL Troponin I (0.000-0.056) ng/mL Urine Color Urine Appearance Urine pH (4.5-8.0) Ur Specific [place] (1.008-1.030) Urine Protein (NEGATIVE) mg/dL Urine Glucose (UA) (NEGATIVE) mg/dL Urine Ketones (NEGATIVE) mg/dL Urine Occult Blood (NEGATIVE) Urine Nitrite (NEGAITVE) Urine Bilirubin (NEGATIVE) Urine Urobilinogen (NORMAL) mg/dL Ur Leukocyte Esterase (NEGATIVE) Urine RBC (0-5) Urine WBC (0-5) Ur Epithelial Cells Amorphous Sediment Urine Bacteria Urine Mucus Mikey Results last 24 hrs: Microbiology 02/09/17 14:27 Gram Stain - Final Sputum - Expectorated Respiratory Culture - Preliminary NO GROWTH AFTER 1 DAY Med Orders - Current: Current Medications Acetaminophen (Tylenol) 650 mg PO Q4H PRN PRN Reason: Pain (Mild 1-3)/fever Last Admin: 02/09/17 14:47 Dose: 650 mg Aspirin (Aspirin) 81 mg PO DAILY [facility] Digoxin (Lanoxin) 125 mcg PO DAILY@1300 [facility] Finasteride (Proscar) 5 mg PO DAILY [facility] Levofloxacin/Dextrose 750 mg/ (Premix) 150 mls @ 100 mls/hr IV Q48H [facility] Ceftriaxone Sodium 2 gm/ (Sodium Chloride) 50 mls @ 100 mls/hr IV Q24H [facility] Last Admin: 02/09/17 13:47 Dose: 100 mls/hr Diltiazem HCl 100 mg/ Sodium (Chloride) 100 mls @ 5 mls/hr IV TITRATE BJORN; 5 MG /HR PRN Reason: Protocol Last Admin: 02/10/17 05:28 Dose: 12.5 mg/hr, 12.5 mls/hr Levalbuterol HCl (Xopenex) 1.25 mg NEB Q4H PRN PRN Reason: Wheezing Last Admin: 02/10/17 01:30 Dose: 1.25 mg Levalbuterol HCl (Xopenex) 1.25 mg NEB QIDRT [facility] Last Admin: 02/10/17 07:07 Dose: 1.25 mg Methylprednisolone Sodium Succinate (Solu-Medrol) 62.5 mg IVPUSH Q6H [facility] Last Admin: 02/10/17 07:40 Dose: 62.5 mg Metoprolol Tartrate (Lopressor) 25 mg PO Q8H [facility] Last Admin: 02/10/17 05:39 Dose: 25 mg Morphine Sulfate (Morphine) 2 mg IVPUSH Q2H PRN PRN Reason: Pain (severe 7-10) Ondansetron HCl (Zofran Odt) 4 mg PO Q6H PRN PRN Reason: Nausea able to take PO Oxybutynin Chloride (Oxybutynin) 2.5 mg PO BID [facility] Polyethylene Glycol (Miralax) 17 gm PO DAILY PRN PRN Reason: Constipation Ranitidine HCl (Zantac) 150 mg PO DAILY [facility] Senna/Docusate Sodium (Senna Plus) 1 tab PO BID PRN PRN Reason: Constipation Last Admin: 02/09/17 21:25 Dose: 1 tab Tamsulosin HCl (Flomax) 0.4 mg PO DAILY [facility] Discontinued Medications Albuterol (Proventil Neb Soln) 2.5 mg NEB Q2H PRN PRN Reason: Shortness Of Breath/wheezing Albuterol/Ipratropium (Duoneb 3.0-0.5 Mg/3 Ml) 3 ml NEB ONETIME ONE Stop: 02/09/17 09:35 Last Admin: 02/09/17 09:43 Dose: 3 ml Albuterol/Ipratropium (Duoneb 3.0-0.5 Mg/3 Ml) 3 ml NEB QIDRT [facility] Last Admin: 02/09/17 14:49 Dose: 3 ml Aspirin (Aspirin) 324 mg PO ONETIME ONE Stop: 02/09/17 12:02 Last Admin: 02/09/17 12:15 Dose: 324 mg Lactated Ringer's (Ringers, Lactated) 1,000 mls @ 125 mls/hr IV ASDIRECTED ONE Stop: 02/09/17 17:29 Last Admin: 02/09/17 09:58 Dose: 125 mls/hr Levofloxacin/Dextrose 750 mg/ (Premix) 150 mls @ 100 mls/hr IV Q24H [facility] Last Admin: 02/09/17 10:56 Dose: 100 mls/hr Lactated Ringer's (Ringers, Lactated) 1,000 mls @ 999 mls/hr IV .BOLUS ONE Stop: 02/09/17 13:49 Last Admin: 02/09/17 13:03 Dose: 999 mls/hr Sodium Chloride (Normal Saline) 1,000 mls @ 125 mls/hr IV ASDIRECTED [facility] Last Admin: 02/10/17 05:29 Dose: 125 mls/hr Lactated Ringer's (Ringers, Lactated) 1,000 mls @ 999 mls/hr IV BOLUS ONE Stop: 02/09/17 17:43 Last Admin: 02/09/17 17:00 Dose: 999 mls/hr Methylprednisolone Sodium Succinate (Solu-Medrol) 125 mg IVPUSH ONETIME ONE Stop: 02/09/17 13:31 Last Admin: 02/09/17 13:47 Dose: 125 mg Metoprolol Tartrate (Lopressor) 25 mg PO ONETIME ONE Stop: 02/09/17 15:16 Last Admin: 02/09/17 15:35 Dose: 25 mg Nitroglycerin (Nitrostat) 0.4 mg SL ONETIME ONE Stop: 02/09/17 15:11 Last Admin: 02/09/17 15:18 Dose: 0.4 mg Sodium Chloride (Saline Flush) 10 ml FLUSH ASDIRECTED PRN PRN Reason: Keep Vein Open Last Admin: 02/09/17 09:43 Dose: 10 ml - Exam Quality Assessment: supplemental oxygen. No: urine catheter General: alert, oriented, cooperative, mild distress Neck: supple. No: lymphadenopathy Lungs: Rales (few at the bases), Wheezing (diffuse exp wheezing) Cardiovascular: Irregular Rhythm, Tachycardia Abdomen: soft, no tenderness, no distension Extremities: no edema, no cyanosis Skin: warm, dry Psy/Mental Status: alert, normal affect - Problem List & Annotations (1) Pneumonia SNOMED Code(s): 793719930 Code(s): J18.9 - PNEUMONIA, UNSPECIFIED ORGANISM Status: Acute Priority: Medium Current Visit: Yes Qualifiers: Pneumonia type: due to unspecified organism Laterality: right Lung location: lower lobe of lung Qualified Code(s): J18.1 - Lobar pneumonia, unspecified organism (2) Sepsis SNOMED Code(s): 48456751 Code(s): A41.9 - SEPSIS, UNSPECIFIED ORGANISM Status: Acute Current Visit : Yes Qualifiers: Sepsis type: sepsis due to unspecified organism Qualified Code(s): A41.9 - Sepsis, unspecified organism (3) Atrial fibrillation with rapid ventricular response SNOMED Code(s): 601972856835654 Code(s): I48.91 - UNSPECIFIED ATRIAL FIBRILLATION Status: Acute Current Visit: Yes (4) NSTEMI (non-ST elevated myocardial infarction) SNOMED Code(s): 192887921 Code(s): I21.4 - NON-ST ELEVATION (NSTEMI) MYOCARDIAL INFARCTION Status: Acute Current Visit: Yes - Problem List Review Problem List Initiated/Reviewed/Updated: Yes - My Orders Last 24 Hours: My Active Orders 02/09/17 12:04 Resuscitation Status Routine 02/09/17 12:22 EKG Documentation Completion [RC] ASDIRECTED EKG 12 Lead [EK] Urgent 02/09/17 12:49 Bedrest Bedside Commode [RC] ASDIRECTED Cardiac Monitoring [RC] CONTINUOUS Intake and Output [RC] QSHIFT Notify Provider Vital Signs [RC] ASDIRECTED Oxygen Therapy [RC] PRN Pulse Oximetry [RC] CONTINUOUS VTE/DVT Education [RC] Per Unit Routine Vital Signs [RC] Q2HR Acetaminophen [Tylenol] 650 mg PO Q4H PRN Docusate Sodium/Sennosides [Senna Plus] 1 tab PO BID PRN Morphine 2 mg IVPUSH Q2H PRN Ondansetron [Zofran ODT] 4 mg PO Q6H PRN Polyethylene Glycol 3350 [MiraLAX] 17 gm PO DAILY PRN 02/09/17 13:30 cefTRIAXone [Rocephin] 2 gm Sodium Chloride 0.9% [Normal Saline] 50 ml IV Q24H 02/09/17 14:27 CULTURE RESPIRATORY + SMEAR [RM] Routine 02/09/17 19:15 RT Aerosol Therapy [RC] ASDIRECTED Diltiazem [Cardizem] 100 mg Sodium Chloride 0.9% [Normal Saline] 100 ml IV TITRATE Levalbuterol HCl [Xopenex] 1.25 mg NEB Q4H PRN 02/09/17 20:00 methylPREDNISolone Sod Succ [Solu-MEDROL] 62.5 mg IVPUSH Q6H 02/09/17 21:00 Levalbuterol HCl [Xopenex] 1.25 mg NEB QIDRT 02/09/17 22:00 Metoprolol Tartrate [Lopressor] 25 mg PO Q8H 02/09/17 Lunch Full Liquid Diet [DIET] 02/10/17 08:36 Dextromethorphan/guaiFENesin [Robitussin DM] 10 ml PO Q4H PRN Magnesium Sulfate/Water [Magnesium Sulfate 2 GM in Water 50 ML] 2 gm Premix Bag 1 bag IV ONETIME 02/10/17 08:37 Phytonadione [AquaMephyton] 2.5 mg PO ONETIME ONE 02/10/17 08:45 Sodium Chloride 0.9% [Normal Saline] 1,000 ml IV ASDIRECTED 02/10/17 09:00 Height and Weight [RC] DAILY Aspirin 81 mg PO DAILY Oxybutynin 2.5 mg PO BID Ranitidine [Zantac] 150 mg PO DAILY 02/10/17 11:00 Levofloxacin/Dextrose 5%-Water [Levaquin in D5W 750 MG/150 ML] 750 mg Premix Bag 1 bag IV Q48H 02/11/17 05:00 BASIC METABOLIC PANEL,BMP [CHEM] Timed CBC W/O DIFF,HEMOGRAM [HEME] Timed (1) INR,PT,PROTHROMBIN TIME [COAG] Timed - Plan Plan:: Assessment and plan - Right lung pneumonia with sepsis syndrome - sepsis is improving but has not completely resolved. Still significant wheezing but he has been stable from a respiratory standpoint. Tolerating antibiotics. Sputum sample showed rare bacteria but there is no growth. Tolerated the levalbuterol nebs better than plain albuterol nebs. -Levofloxacin and ceftriaxone -IV fluids at tko -Scheduled and as needed nebs -Followup blood cultures -followup Sputum culture -Supplemental oxygen Non-ST elevation myocardial infarction - I suspect this was caused by the pneumonia and sepsis rather than a primary cardiac event necessarily. troponin level peaked at just over 4 and is trending down. He has not had any chest pain. Other than his atrial fibrillation his vital signs have been stable. -Daily aspirin -I did not add additional anticoagulation because of his current warfarin use -Additional medical management including beta hunter Atrial fibrillation with rapid ventricular response - heart rate has improved with the diltiazem infusion. INR mildly supratherapeutic today. -Continue beta hunter -Continue digoxin -Cardiac monitoring -continue diltiazem -vitamin K 2.5 mg this morning -hold anticoagulation with elevated INR -INR in the morning Stage III chronic kidney disease - kidney function near baseline at this time. Maintenance issues - - DVT prophylaxis - warfarin - GI prophylaxis - PPI - Nutrition - heart healthy diet - Jimenez catheter - not currently indicated but could be considered Disposition - anticipate discharge back to the assisted living or possibly the longterm if he survives the hospital stay Clarke Rodriguez M.D.
[2017-02-10] MEDS ORDERED: Sodium Chloride 0.9% 1,000 ML IV SCH (08:45)
[2017-02-10] MEDS: Lactobacillus Rhamnosus GG (Probiotic) Cap PO SCH ×3 (08:58→21:11)
[2017-02-10] MEDS: Tamsulosin 0.4 MG Cap.ER PO SCH (08:58)
[2017-02-10] MEDS: Finasteride 5 MG Tab PO SCH (08:58)
[2017-02-10] MEDS: Oxybutynin 5 MG Tab PO SCH ×3 (08:58→21:11)
[2017-02-10] MEDS: Aspirin 81 MG Tab.Chew PO SCH (08:59)
[2017-02-10] MEDS ORDERED: Furosemide 20 MG/2 ML VIAL IVPUSH ONE (09:00)
[2017-02-10] MEDS ORDERED: Non-Formulary Medication 1 Each (Oxybutynin [Oxybutynin Er] 5 MG) PO SCH (09:00)
[2017-02-10] MEDS ORDERED: Magnesium Sulfate/Water 2 GM in Premix Bag 1 BAG IV ONE (09:00)
[2017-02-10] MEDS ORDERED: Non-Formulary Medication 1 Each (Ranitidine Hcl [Ranitidine Hcl] 150 MG) PO SCH (09:00)
[2017-02-10] MEDS: guaiFENesin/Dextromethorphan 100-10 MG/5 ML Soln 10 ML Cup PO PRN ×2 (09:12→22:11)
[2017-02-10] MEDS ORDERED: Levofloxacin/Dextrose 5%-Water 750 MG in Premix Bag 1 BAG IV SCH (11:00)
[2017-02-10] MEDS: Digoxin 125 MCG Tab PO SCH (12:40)
[2017-02-10] MEDS: cefTRIAXone 2 GM in Sodium Chloride 0.9% 50 ML IV SCH (14:05)
[2017-02-10] MEDS: Polyethylene Glycol 3350 Powder 17 GM Packet PO PRN (22:11)
[2017-02-11] MEDS: methylPREDNISolone Sodium Succinate 125 MG/2 ML SDV IVPUSH SCH ×4 (01:30→19:51)
[2017-02-11] MEDS: Diltiazem 100 MG in Sodium Chloride 0.9% 100 ML IV SCH ×3 (04:27→18:44)
[2017-02-11] MEDS: Metoprolol Tartrate 25 MG Tab PO SCH ×3 (05:21→21:52)
[2017-02-11] MEDS: Levalbuterol HCl 1.25 MG/3 ML Neb NEB SCH ×4 (07:19→21:54)
[2017-02-11] MEDS: Oxybutynin 5 MG Tab PO SCH ×2 (08:28→21:51)
[2017-02-11] MEDS: Tamsulosin 0.4 MG Cap.ER PO SCH (08:28)
[2017-02-11] MEDS: Aspirin 81 MG Tab.Chew PO SCH (08:29)
[2017-02-11] MEDS: Lactobacillus Rhamnosus GG (Probiotic) Cap PO SCH ×2 (08:29→21:51)
[2017-02-11] MEDS: Finasteride 5 MG Tab PO SCH (08:30)
--- NOTE | 2017-02-11 09:00 | PCM.PN ---
- General Info Date of Service: 02/11/17 Functional Status: Reports: pain controlled, tolerating diet, urinating - Review of Systems General: Reports: Weakness Pulmonary: Reports: shortness of breath, cough Gastrointestinal: Reports: Abdominal pain, Constipation Systems Review Comment:: No acute events overnight. Heart rate has been fairly well-controlled with the diltiazem infusion. Ongoing cough and occasional sputum production. Still wheezing significantly. He reports that he does not feel short of breath unless he is active. He has not had any fevers. All of his cultures are normal. Abdomen feels more distended today. No bowel movement in a couple of days. Tolerating current antibiotics. - Patient Data Vitals - most recent: Last Vital Signs Temp 36.6 C 02/11/17 08:00 Pulse 97 02/11/17 08:53 Resp 21 H 02/11/17 08:53 BP 122/82 02/11/17 08:53 Pulse Ox 97 02/11/17 08:53 Weight - most recent: 87.271 kg I&O - last 24 hours: Intake & Output 02/10/17 02/11/17 02/11/17 22:59 06:59 14:59 Intake Total 3228 924 Output Total 350 150 Balance 2878 774 Lab Results last 24 hrs: Laboratory Results - last 24 hr 02/11/17 02/11/17 02/11/17 Range/Units 05:00 05:00 05:00 WBC 11.7 H (4.5-11.0) K/uL RBC 4.10 L (4.30-5.90) M/uL Hgb 12.4 (12.0-15.0) g/dL Hct 37.6 L (40.0-54.0) % MCV 92 (80-98) fL MCH 30 (27-31) pg MCHC 33 (32-36) % Plt Count 306 (150-400) K/uL PT 30.1 H (9.5-12.0) sec INR 2.75 H D (0.80-1.20) Sodium 129 L (140-148) mmol/L Potassium 4.1 (3.6-5.2) mmol/L Chloride 96 L (100-108) mmol/L Carbon Dioxide 25 (21-32) mmol/L Anion Gap 12.1 (5.0-14.0) mmol/L BUN 27 H (7-18) mg/dL Creatinine 1.0 (0.8-1.3) mg/dL Est Cr Clr Drug Dosing 51.84 mL/min Estimated GFR (MDRD) > 60 (>60) Glucose 166 H (74-106) mg/dL Calcium 8.1 L (8.5-10.1) mg/dL Mikey Results last 24 hrs: Microbiology 02/09/17 14:27 Gram Stain - Final Sputum - Expectorated Respiratory Culture - Final NORMAL RESPIRATORY JO ANN 2 DAYS Med Orders - Current: Current Medications Acetaminophen (Tylenol) 650 mg PO Q4H PRN PRN Reason: Pain (Mild 1-3)/fever Last Admin: 02/09/17 14:47 Dose: 650 mg Aspirin (Aspirin) 81 mg PO DAILY [facility] Last Admin: 02/11/17 08:29 Dose: 81 mg Bisacodyl (Dulcolax) 10 mg RECTAL ONETIME ONE Stop: 02/11/17 08:51 Digoxin (Lanoxin) 125 mcg PO DAILY@1300 [facility] Last Admin: 02/10/17 12:40 Dose: 125 mcg Finasteride (Proscar) 5 mg PO DAILY [facility] Last Admin: 02/11/17 08:30 Dose: 5 mg Guaifenesin/Dextromethorphan (Robitussin Dm) 10 ml PO Q4H PRN PRN Reason: Cough Last Admin: 02/10/17 22:11 Dose: 10 ml Ceftriaxone Sodium 2 gm/ (Sodium Chloride) 50 mls @ 100 mls/hr IV Q24H [facility] Last Admin: 02/10/17 14:05 Dose: 100 mls/hr Diltiazem HCl 100 mg/ Sodium (Chloride) 100 mls @ 5 mls/hr IV TITRATE BJORN; 5 MG /HR PRN Reason: Protocol Last Titration: 02/11/17 08:37 Dose: 15 mg/hr, 15 mls/hr Sodium Chloride (Normal Saline) 1,000 mls @ 25 mls/hr IV ASDIRECTED [facility] Levofloxacin/Dextrose 750 mg/ (Premix) 150 mls @ 100 mls/hr IV Q24H [facility] Lactobacillus Rhamnosus (Culturelle) 1 cap PO BID [facility] Last Admin: 02/11/17 08:29 Dose: 1 cap Levalbuterol HCl (Xopenex) 1.25 mg NEB Q4H PRN PRN Reason: Wheezing Last Admin: 02/10/17 23:50 Dose: 1.25 mg Levalbuterol HCl (Xopenex) 1.25 mg NEB QIDRT [facility] Last Admin: 02/11/17 07:19 Dose: 1.25 mg Methylprednisolone Sodium Succinate (Solu-Medrol) 62.5 mg IVPUSH Q6H [facility] Last Admin: 02/11/17 07:46 Dose: 62.5 mg Metoprolol Tartrate (Lopressor) 25 mg PO Q8H [facility] Last Admin: 02/11/17 05:21 Dose: 25 mg Morphine Sulfate (Morphine) 2 mg IVPUSH Q2H PRN PRN Reason: Pain (severe 7-10) Ondansetron HCl (Zofran Odt) 4 mg PO Q6H PRN PRN Reason: Nausea able to take PO Oxybutynin Chloride (Oxybutynin) 2.5 mg PO BID [facility] Last Admin: 02/11/17 08:28 Dose: 2.5 mg Polyethylene Glycol (Miralax) 17 gm PO DAILY PRN PRN Reason: Constipation Last Admin: 02/10/17 22:11 Dose: 17 gm Ranitidine HCl (Zantac) 150 mg PO DAILY [facility] Last Admin: 02/11/17 08:29 Dose: 150 mg Senna/Docusate Sodium (Senna Plus) 1 tab PO BID PRN PRN Reason: Constipation Last Admin: 02/09/17 21:25 Dose: 1 tab Tamsulosin HCl (Flomax) 0.4 mg PO DAILY [facility] Last Admin: 02/11/17 08:28 Dose: 0.4 mg Warfarin Sodium (Coumadin) 2.5 mg PO ONETIME ONE Stop: 02/11/17 13:01 Discontinued Medications Albuterol (Proventil Neb Soln) 2.5 mg NEB Q2H PRN PRN Reason: Shortness Of Breath/wheezing Albuterol/Ipratropium (Duoneb 3.0-0.5 Mg/3 Ml) 3 ml NEB ONETIME ONE Stop: 02/09/17 09:35 Last Admin: 02/09/17 09:43 Dose: 3 ml Albuterol/Ipratropium (Duoneb 3.0-0.5 Mg/3 Ml) 3 ml NEB QIDRT [facility] Last Admin: 02/09/17 14:49 Dose: 3 ml Aspirin (Aspirin) 324 mg PO ONETIME ONE Stop: 02/09/17 12:02 Last Admin: 02/09/17 12:15 Dose: 324 mg Furosemide (Lasix) 20 mg IVPUSH ONETIME ONE Stop: 02/10/17 09:01 Last Admin: 02/10/17 08:59 Dose: 20 mg Lactated Ringer's (Ringers, Lactated) 1,000 mls @ 125 mls/hr IV ASDIRECTED ONE Stop: 02/09/17 17:29 Last Admin: 02/09/17 09:58 Dose: 125 mls/hr Levofloxacin/Dextrose 750 mg/ (Premix) 150 mls @ 100 mls/hr IV Q24H [facility] Last Admin: 02/09/17 10:56 Dose: 100 mls/hr Lactated Ringer's (Ringers, Lactated) 1,000 mls @ 999 mls/hr IV .BOLUS ONE Stop: 02/09/17 13:49 Last Admin: 02/09/17 13:03 Dose: 999 mls/hr Levofloxacin/Dextrose 750 mg/ (Premix) 150 mls @ 100 mls/hr IV Q48H [facility] Stop: 02/10/17 13:00 Last Admin: 02/10/17 11:12 Dose: 100 mls/hr Sodium Chloride (Normal Saline) 1,000 mls @ 125 mls/hr IV ASDIRECTED [facility] Last Admin: 02/10/17 05:29 Dose: 125 mls/hr Lactated Ringer's (Ringers, Lactated) 1,000 mls @ 999 mls/hr IV BOLUS ONE Stop: 02/09/17 17:43 Last Admin: 02/09/17 17:00 Dose: 999 mls/hr Magnesium Sulfate 2 gm/ Premix 50 mls @ 25 mls/hr IV ONETIME ONE Stop: 02/10/17 10:59 Last Admin: 02/10/17 09:05 Dose: 25 mls/hr Methylprednisolone Sodium Succinate (Solu-Medrol) 125 mg IVPUSH ONETIME ONE Stop: 02/09/17 13:31 Last Admin: 02/09/17 13:47 Dose: 125 mg Metoprolol Tartrate (Lopressor) 25 mg PO ONETIME ONE Stop: 02/09/17 15:16 Last Admin: 02/09/17 15:35 Dose: 25 mg Nitroglycerin (Nitrostat) 0.4 mg SL ONETIME ONE Stop: 02/09/17 15:11 Last Admin: 02/09/17 15:18 Dose: 0.4 mg Phytonadione (Aquamephyton) 2.5 mg PO ONETIME ONE Stop: 02/10/17 08:38 Last Admin: 02/10/17 08:59 Dose: 2.5 mg Sodium Chloride (Saline Flush) 10 ml FLUSH ASDIRECTED PRN PRN Reason: Keep Vein Open Last Admin: 02/09/17 09:43 Dose: 10 ml - Exam Quality Assessment: supplemental oxygen General: alert, oriented, cooperative, mild distress Neck: supple, trachea midline Lungs: Rales (both bases right > left), Wheezing (moderate diffuse exp wheezing ) Cardiovascular: Irregular Rhythm, Tachycardia Abdomen: bowel sounds present, soft, tenderness, distension Extremities: no edema, no cyanosis Peripheral Pulses: 2+: Dorsalis Pedis (L), Dorsalis Pedis (R) Skin: warm, dry Psy/Mental Status: alert, normal affect - Problem List & Annotations (1) Pneumonia SNOMED Code(s): 536111430 Code(s): J18.9 - PNEUMONIA, UNSPECIFIED ORGANISM Status: Acute Priority: Medium Current Visit: Yes Qualifiers: Pneumonia type: due to unspecified organism Laterality: right Lung location: lower lobe of lung Qualified Code(s): J18.1 - Lobar pneumonia, unspecified organism (2) Sepsis SNOMED Code(s): 64166339 Code(s): A41.9 - SEPSIS, UNSPECIFIED ORGANISM Status: Acute Current Visit : Yes Qualifiers: Sepsis type: sepsis due to unspecified organism Qualified Code(s): A41.9 - Sepsis, unspecified organism (3) Atrial fibrillation with rapid ventricular response SNOMED Code(s): 892075393352314 Code(s): I48.91 - UNSPECIFIED ATRIAL FIBRILLATION Status: Acute Current Visit: Yes (4) NSTEMI (non-ST elevated myocardial infarction) SNOMED Code(s): 159898712 Code(s): I21.4 - NON-ST ELEVATION (NSTEMI) MYOCARDIAL INFARCTION Status: Acute Current Visit: Yes - Problem List Review Problem List Initiated/Reviewed/Updated: Yes - My Orders Last Hours: My Active Orders 02/10/17 08:36 Dextromethorphan/guaiFENesin [Robitussin DM] 10 ml PO Q4H PRN 02/10/17 08:45 Sodium Chloride 0.9% [Normal Saline] 1,000 ml IV ASDIRECTED 02/10/17 09:00 Height and Weight [RC] DAILY Aspirin 81 mg PO DAILY Lactobacillus Rhamnosus GG [Culturelle] 1 cap PO BID Oxybutynin 2.5 mg PO BID Ranitidine [Zantac] 150 mg PO DAILY 02/11/17 08:50 Bisacodyl [Dulcolax] 10 mg RECTAL ONETIME ONE 02/11/17 08:51 Chest 1V Frontal [CR] Routine 02/11/17 11:00 Levofloxacin/Dextrose 5%-Water [Levaquin in D5W 750 MG/150 ML] 750 mg Premix Bag 1 bag IV Q24H 02/11/17 13:00 Warfarin [Coumadin] 2.5 mg PO ONETIME ONE 02/12/17 05:00 BASIC METABOLIC PANEL,BMP [CHEM] Timed CBC W/O DIFF,HEMOGRAM [HEME] Timed (1) DIGOXIN [CHEM] Timed INR,PT,PROTHROMBIN TIME [COAG] Timed - Plan Plan:: ASSESSMENT AND PLAN - Right lung pneumonia with sepsis syndrome - sepsis has resolved. Seems to be slowly getting better but still a fair amount of respiratory compromise and wheezing. Cultures have been negative so far. I think we are on the right track as far as his treatment plan but just need more time with the severity of the infection and his advanced age. -Levofloxacin and ceftriaxone -IV fluids at tko -Scheduled and as needed nebs -Followup blood cultures (no growth so far) -followup Sputum culture (no growth so far) -Supplemental oxygen Non-ST elevation myocardial infarction - no complaints of chest pain at this time. Blood pressure has been stable. He is receiving a beta hunter and aspirin as discussed below. He was not interested in aggressive intervention given his advanced age and poor functional status at presentation. -Daily aspirin -I did not add additional anticoagulation because of his current warfarin use -Additional medical management including beta hunter Atrial fibrillation with rapid ventricular response - heart rate stable at diltiazem infusion INR therapeutic today. -Continue beta hunter -Continue digoxin -Digoxin level in the morning -Cardiac monitoring -continue diltiazem -Restart warfarin today - reassess tomorrow, will need additional doses ordered tomorrow -INR in the morning Stage III chronic kidney disease - kidney function near baseline at this time. Maintenance issues - - DVT prophylaxis - warfarin - GI prophylaxis - PPI - Nutrition - heart healthy diet - Jimenez catheter - not currently indicated but could be considered Disposition - anticipate discharge back to the assisted living or possibly the jail after the hospital stay Clarke Rodriguez M.D.
[2017-02-11] MEDS ORDERED: Bisacodyl 10 MG Supp RECTAL ONE (09:30)
--- NOTE | 2017-02-11 10:13 | CR ---
Heart size stable. Mildly decreased airspace disease diffusely compared to prior examination dated . Recommend continued radiographic follow-up.
[2017-02-11] MEDS: Levofloxacin/Dextrose 5%-Water 750 MG in Premix Bag 1 BAG IV SCH (10:28)
[2017-02-11] MEDS ORDERED: Warfarin 2.5 MG Tab PO ONE (13:00)
[2017-02-11] MEDS: Digoxin 125 MCG Tab PO SCH (13:06)
[2017-02-11] MEDS: guaiFENesin/Dextromethorphan 100-10 MG/5 ML Soln 10 ML Cup PO PRN (13:17)
[2017-02-11] MEDS: cefTRIAXone 2 GM in Sodium Chloride 0.9% 50 ML IV SCH (13:20)
[2017-02-11] MEDS: Levalbuterol HCl 1.25 MG/3 ML Neb NEB PRN (19:52)
[2017-02-12] MEDS: guaiFENesin/Dextromethorphan 100-10 MG/5 ML Soln 10 ML Cup PO PRN ×2 (00:54→04:31)
[2017-02-12] MEDS: Diltiazem 100 MG in Sodium Chloride 0.9% 100 ML IV SCH ×2 (02:01→08:38)
[2017-02-12] MEDS: Levalbuterol HCl 1.25 MG/3 ML Neb NEB PRN (02:05)
[2017-02-12] MEDS: methylPREDNISolone Sodium Succinate 125 MG/2 ML SDV IVPUSH SCH ×4 (02:06→20:01)
[2017-02-12] MEDS: Metoprolol Tartrate 25 MG Tab PO SCH ×3 (06:17→21:16)
[2017-02-12] MEDS: Levalbuterol HCl 1.25 MG/3 ML Neb NEB SCH ×4 (07:19→20:44)
[2017-02-12] MEDS: Oxybutynin 5 MG Tab PO SCH ×2 (08:28→20:42)
[2017-02-12] MEDS: Aspirin 81 MG Tab.Chew PO SCH (08:28)
[2017-02-12] MEDS: Finasteride 5 MG Tab PO SCH (08:28)
[2017-02-12] MEDS: Tamsulosin 0.4 MG Cap.ER PO SCH (08:28)
[2017-02-12] MEDS: Lactobacillus Rhamnosus GG (Probiotic) Cap PO SCH ×2 (08:28→20:42)
--- NOTE | 2017-02-12 10:58 | PCM.PN ---
- General Info Date of Service: 02/12/17 - Review of Systems General: Reports: Weakness. Denies: Fever, Chills HEENT: Reports: no symptoms Pulmonary: Reports: shortness of breath, cough, wheezing. Denies: pleuritic chest pain, sputum, hemoptysis Cardiovascular: Reports: Edema. Denies: Chest Pain, Palpitations, Orthopnea, PND Gastrointestinal: Reports: No symptoms Skin: Reports: no symptoms Systems Review Comment:: This patient has been stable over the past 24 hours, vital signs have been good and he has remained afebrile. Respiratory status seems to be slowly improved, he does have some peripheral edema and ongoing abdominal distention. He did have a bowel movement yesterday, oral intake has been relatively good but he does have some difficulty eating because of shortness of breath. - Patient Data Vitals - most recent: Last Vital Signs Temp 98.6 F 02/12/17 07:00 Pulse 79 02/12/17 10:32 Resp 15 02/12/17 08:00 BP 139/90 02/12/17 08:38 Pulse Ox 95 02/12/17 10:32 Weight - most recent: 192 lb 6.4 oz I&O - last 24 hours: Intake & Output 02/11/17 02/12/17 02/12/17 22:59 06:59 14:59 Intake Total 320 299 Output Total 125 200 200 Balance 195 99 -200 Lab Results last 24 hrs: Laboratory Results - last 24 hr 02/12/17 02/12/17 02/12/17 Range/Units 05:00 05:00 05:00 WBC 11.1 H (4.5-11.0) K/uL RBC 4.09 L (4.30-5.90) M/uL Hgb 12.6 (12.0-15.0) g/dL Hct 37.3 L (40.0-54.0) % MCV 91 (80-98) fL MCH 31 (27-31) pg MCHC 34 (32-36) % Plt Count 333 (150-400) K/uL PT 21.5 H (9.5-12.0) sec INR 1.99 H (0.80-1.20) Sodium 129 L (140-148) mmol/L Potassium 4.3 (3.6-5.2) mmol/L Chloride 96 L (100-108) mmol/L Carbon Dioxide 24 (21-32) mmol/L Anion Gap 13.3 (5.0-14.0) mmol/L BUN 36 H (7-18) mg/dL Creatinine 1.1 (0.8-1.3) mg/dL Est Cr Clr Drug Dosing 47.12 mL/min Estimated GFR (MDRD) > 60 (>60) Glucose 174 H (74-106) mg/dL Calcium 8.4 L (8.5-10.1) mg/dL Digoxin 0.69 L (0.90-2.00) ng/mL Mikey Results last 24 hrs: Microbiology 02/09/17 14:27 Gram Stain - Final Sputum - Expectorated Respiratory Culture - Final NORMAL RESPIRATORY JO ANN 2 DAYS Med Orders - Current: Current Medications Acetaminophen (Tylenol) 650 mg PO Q4H PRN PRN Reason: Pain (Mild 1-3)/fever Last Admin: 02/09/17 14:47 Dose: 650 mg Aspirin (Aspirin) 81 mg PO DAILY [facility] Last Admin: 02/12/17 08:28 Dose: 81 mg Digoxin (Lanoxin) 125 mcg PO DAILY@1300 [facility] Last Admin: 02/11/17 13:06 Dose: 125 mcg Diltiazem HCl (Cardizem) 30 mg PO Q6HR [facility] Finasteride (Proscar) 5 mg PO DAILY [facility] Last Admin: 02/12/17 08:28 Dose: 5 mg Guaifenesin/Dextromethorphan (Robitussin Dm) 10 ml PO Q4H PRN PRN Reason: Cough Last Admin: 02/12/17 04:31 Dose: 10 ml Ceftriaxone Sodium 2 gm/ (Sodium Chloride) 50 mls @ 100 mls/hr IV Q24H [facility] Last Admin: 02/11/17 13:20 Dose: 100 mls/hr Sodium Chloride (Normal Saline) 1,000 mls @ 25 mls/hr IV ASDIRECTED [facility] Last Admin: 02/11/17 20:25 Dose: 25 mls/hr Levofloxacin/Dextrose 750 mg/ (Premix) 150 mls @ 100 mls/hr IV Q24H [facility] Last Admin: 02/11/17 10:28 Dose: 100 mls/hr Lactobacillus Rhamnosus (Culturelle) 1 cap PO BID [facility] Last Admin: 02/12/17 08:28 Dose: 1 cap Levalbuterol HCl (Xopenex) 1.25 mg NEB Q4H PRN PRN Reason: Wheezing Last Admin: 02/12/17 02:05 Dose: 1.25 mg Levalbuterol HCl (Xopenex) 1.25 mg NEB QIDRT [facility] Last Admin: 02/12/17 10:32 Dose: 1.25 mg Methylprednisolone Sodium Succinate (Solu-Medrol) 62.5 mg IVPUSH Q6H [facility] Last Admin: 02/12/17 08:28 Dose: 62.5 mg Metoprolol Tartrate (Lopressor) 25 mg PO Q8H [facility] Last Admin: 02/12/17 06:17 Dose: 25 mg Morphine Sulfate (Morphine) 2 mg IVPUSH Q2H PRN PRN Reason: Pain (severe 7-10) Ondansetron HCl (Zofran Odt) 4 mg PO Q6H PRN PRN Reason: Nausea able to take PO Oxybutynin Chloride (Oxybutynin) 2.5 mg PO BID [facility] [place] Last Admin: 02/12/17 08:28 Dose: 2.5 mg Polyethylene Glycol (Miralax) 17 gm PO DAILY PRN PRN Reason: Constipation Last Admin: 02/10/17 22:11 Dose: 17 gm Ranitidine HCl (Zantac) 150 mg PO DAILY [facility] Last Admin: 02/12/17 08:28 Dose: 150 mg Senna/Docusate Sodium (Senna Plus) 1 tab PO BID PRN PRN Reason: Constipation Last Admin: 02/09/17 21:25 Dose: 1 tab Tamsulosin HCl (Flomax) 0.4 mg PO DAILY [facility] Last Admin: 02/12/17 08:28 Dose: 0.4 mg Warfarin Sodium (Coumadin) 5 mg PO ONETIME ONE Stop: 02/12/17 10:53 Discontinued Medications Albuterol (Proventil Neb Soln) 2.5 mg NEB Q2H PRN PRN Reason: Shortness Of Breath/wheezing Albuterol/Ipratropium (Duoneb 3.0-0.5 Mg/3 Ml) 3 ml NEB ONETIME ONE Stop: 02/09/17 09:35 Last Admin: 02/09/17 09:43 Dose: 3 ml Albuterol/Ipratropium (Duoneb 3.0-0.5 Mg/3 Ml) 3 ml NEB QIDRT [facility] [place] Last Admin: 02/09/17 14:49 Dose: 3 ml Aspirin (Aspirin) 324 mg PO ONETIME ONE Stop: 02/09/17 12:02 Last Admin: 02/09/17 12:15 Dose: 324 mg Bisacodyl (Dulcolax) 10 mg RECTAL ONETIME ONE Stop: 02/11/17 09:31 Last Admin: 02/11/17 09:13 Dose: 10 mg Furosemide (Lasix) 20 mg IVPUSH ONETIME ONE Stop: 02/10/17 09:01 Last Admin: 02/10/17 08:59 Dose: 20 mg Lactated Ringer's (Ringers, Lactated) 1,000 mls @ 125 mls/hr IV ASDIRECTED ONE Stop: 02/09/17 17:29 Last Admin: 02/09/17 09:58 Dose: 125 mls/hr Levofloxacin/Dextrose 750 mg/ (Premix) 150 mls @ 100 mls/hr IV Q24H [facility] [place] Last Admin: 02/09/17 10:56 Dose: 100 mls/hr Lactated Ringer's (Ringers, Lactated) 1,000 mls @ 999 mls/hr IV .BOLUS ONE Stop: 02/09/17 13:49 Last Admin: 02/09/17 13:03 Dose: 999 mls/hr Levofloxacin/Dextrose 750 mg/ (Premix) 150 mls @ 100 mls/hr IV Q48H [facility] Stop: 02/10/17 13:00 Last Admin: 02/10/17 11:12 Dose: 100 mls/hr Sodium Chloride (Normal Saline) 1,000 mls @ 125 mls/hr IV ASDIRECTED [facility] Last Admin: 02/10/17 05:29 Dose: 125 mls/hr Lactated Ringer's (Ringers, Lactated) 1,000 mls @ 999 mls/hr IV BOLUS ONE Stop: 02/09/17 17:43 Last Admin: 02/09/17 17:00 Dose: 999 mls/hr Diltiazem HCl 100 mg/ Sodium (Chloride) 100 mls @ 5 mls/hr IV TITRATE BJORN; 5 MG /HR PRN Reason: Protocol Last Admin: 02/12/17 08:38 Dose: 15 mg/hr, 15 mls/hr Magnesium Sulfate 2 gm/ Premix 50 mls @ 25 mls/hr IV ONETIME ONE Stop: 02/10/17 10:59 Last Admin: 02/10/17 09:05 Dose: 25 mls/hr Methylprednisolone Sodium Succinate (Solu-Medrol) 125 mg IVPUSH ONETIME ONE Stop: 02/09/17 13:31 Last Admin: 02/09/17 13:47 Dose: 125 mg Metoprolol Tartrate (Lopressor) 25 mg PO ONETIME ONE Stop: 02/09/17 15:16 Last Admin: 02/09/17 15:35 Dose: 25 mg Nitroglycerin (Nitrostat) 0.4 mg SL ONETIME ONE Stop: 02/09/17 15:11 Last Admin: 02/09/17 15:18 Dose: 0.4 mg Phytonadione (Aquamephyton) 2.5 mg PO ONETIME ONE Stop: 02/10/17 08:38 Last Admin: 02/10/17 08:59 Dose: 2.5 mg Sodium Chloride (Saline Flush) 10 ml FLUSH ASDIRECTED PRN PRN Reason: Keep Vein Open Last Admin: 02/09/17 09:43 Dose: 10 ml Warfarin Sodium (Coumadin) 2.5 mg PO ONETIME ONE Stop: 02/11/17 13:01 Last Admin: 02/11/17 13:11 Dose: 2.5 mg - Exam Quality Assessment: DVT prophylaxis General: alert, cooperative, mild distress Lungs: Decreased breath sounds, Wheezing. No: Crackles, Rales, Rhonchi, Rub, Stridor Cardiovascular: Regular Rate, No Murmurs, Irregular Rhythm Abdomen: bowel sounds present, soft, no tenderness, no distension Extremities: edema Skin: warm, dry, intact - Problem List Review Problem List Initiated/Reviewed/Updated: Yes - My Orders Last 24 Hours: My Active Orders 02/12/17 10:52 Warfarin [Coumadin] 5 mg PO ONETIME ONE 02/12/17 11:00 Diltiazem [Cardizem] 30 mg PO Q6HR Furosemide [Lasix] 20 mg PO DAILY 02/13/17 05:00 BASIC METABOLIC PANEL,BMP [CHEM] Timed CBC WITH AUTO DIFF [HEME] Timed 02/13/17 05:11 INR,PT,PROTHROMBIN TIME [COAG] AM - Plan Plan:: ASSESSMENT AND PLAN - Right lung pneumonia with sepsis syndrome - sepsis has resolved. Seems to be slowly getting better but still a fair amount of respiratory compromise and wheezing. Continued slow improvement over the past 24 hours -Levofloxacin and ceftriaxone -IV fluids at tko -Scheduled and as needed nebs -Followup blood cultures (no growth so far) -followup Sputum culture (no growth so far) -Supplemental oxygen Non-ST elevation myocardial infarction - no complaints of chest pain at this time. Blood pressure has been stable. He is receiving a beta hunter and aspirin as discussed below. He was not interested in aggressive intervention given his advanced age and poor functional status at presentation. -Daily aspirin -I did not add additional anticoagulation because of his current warfarin use -Additional medical management including beta hunter Atrial fibrillation with rapid ventricular response - heart rate has remained stable since yesterday, we'll plan to transition to oral diltiazem today -Continue beta hunter -Continue digoxin -Cardiac monitoring -Discontinue diltiazem infusion -Transitioned to oral diltiazem 30 mg by mouth every 6 hours -Warfarin 5 mg by mouth today -INR in the morning Stage III chronic kidney disease - kidney function near baseline at this time. Maintenance issues - - DVT prophylaxis - warfarin - GI prophylaxis - PPI - Nutrition - heart healthy diet - Jimenez catheter - not currently indicated but could be considered Disposition - anticipate discharge back to the assisted living or possibly the pen[facility]entiary after the hospital stay
[2017-02-12] MEDS: Diltiazem IR 30 MG Tab PO SCH ×3 (11:10→21:16)
[2017-02-12] MEDS: Levofloxacin/Dextrose 5%-Water 750 MG in Premix Bag 1 BAG IV SCH (11:10)
[2017-02-12] MEDS: Furosemide 20 MG Tab PO SCH (11:10)
[2017-02-12] MEDS ORDERED: Warfarin 5 MG Tab PO ONE (13:00)
[2017-02-12] MEDS: Digoxin 125 MCG Tab PO SCH (13:07)
[2017-02-12] MEDS: cefTRIAXone 2 GM in Sodium Chloride 0.9% 50 ML IV SCH (13:55)
[2017-02-13] MEDS: methylPREDNISolone Sodium Succinate 125 MG/2 ML SDV IVPUSH SCH ×2 (01:42→07:59)
[2017-02-13] MEDS: Diltiazem IR 30 MG Tab PO SCH (04:45)
[2017-02-13] MEDS: Metoprolol Tartrate 25 MG Tab PO SCH (06:58)
[2017-02-13] MEDS: Levalbuterol HCl 1.25 MG/3 ML Neb NEB SCH ×4 (07:07→21:12)
[2017-02-13] MEDS: Aspirin 81 MG Tab.Chew PO SCH ×2 (09:16→10:17)
[2017-02-13] MEDS: Furosemide 20 MG Tab PO SCH (09:17)
[2017-02-13] MEDS: Metoprolol Succinate 50 MG Tab.ER PO SCH ×3 (09:17→21:11)
[2017-02-13] MEDS: Tamsulosin 0.4 MG Cap.ER PO SCH ×2 (09:17→10:17)
[2017-02-13] MEDS: Oxybutynin 5 MG Tab PO SCH ×3 (09:17→21:11)
[2017-02-13] MEDS: Diltiazem 180 MG Cap.CD PO SCH ×2 (09:17→10:13)
[2017-02-13] MEDS: Finasteride 5 MG Tab PO SCH ×2 (09:17→10:17)
[2017-02-13] MEDS: Lactobacillus Rhamnosus GG (Probiotic) Cap PO SCH ×3 (09:17→21:11)
--- NOTE | 2017-02-13 09:49 | PCM.PN ---
- General Info Date of Service: 02/13/17 Functional Status: Reports: pain controlled - Review of Systems General: Reports: Weakness. Denies: Fever, Chills Pulmonary: Reports: shortness of breath, cough. Denies: pleuritic chest pain, sputum, hemoptysis, wheezing Cardiovascular: Reports: Dyspnea on Exertion. Denies: Chest Pain, Palpitations , Orthopnea, PND Gastrointestinal: Reports: No symptoms Psychiatric: Reports: depression Systems Review Comment:: This patient reports he's not feeling as well today, very depressed and does not want to pursue further aggressive intervention. He has asked that his children coming to see him today so that he could discuss withdrawing support and proceeding with comfort cares only. Vital signs have been fairly stable and has tolerated being off of the IV Cardizem was switched to oral medication. He has remained afebrile and oxygen saturations have been within the desired range. Oral intake has been marginal and other than sitting in the chair has not been able to be very active. - Patient Data Vitals - most recent: Last Vital Signs Temp 98.1 F 02/13/17 08:00 Pulse 101 H 02/13/17 07:07 Resp 13 02/13/17 09:00 BP 140/80 02/13/17 09:00 Pulse Ox 95 02/13/17 09:00 Weight - most recent: 198 lb 12.8 oz I&O - last 24 hours: Intake & Output 02/12/17 02/13/17 02/13/17 22:59 06:59 14:59 Intake Total 374 325 Output Total 650 675 Balance -276 -675 325 Lab Results last 24 hrs: Laboratory Results - last 24 hr 02/13/17 02/13/17 02/13/17 Range/Units 05:00 05:25 05:25 WBC 10.9 (4.5-11.0) K/uL RBC 4.14 L (4.30-5.90) M/uL Hgb 12.7 (12.0-15.0) g/dL Hct 37.8 L (40.0-54.0) % MCV 91 (80-98) fL MCH 31 (27-31) pg MCHC 34 (32-36) % Plt Count 358 (150-400) K/uL Neut % (Auto) 94 H (36-66) % Lymph % (Auto) 3 L (24-44) % [place] % (Auto) 3 (2-6) % Eos % (Auto) 0 L (2-4) % Baso % (Auto) 0 (0-1) % PT 28.5 H (9.5-12.0) sec INR 2.61 H (0.80-1.20) Sodium 133 L (140-148) mmol/L Potassium 4.7 (3.6-5.2) mmol/L Chloride 99 L (100-108) mmol/L Carbon Dioxide 26 (21-32) mmol/L Anion Gap 12.7 (5.0-14.0) mmol/L BUN 31 H (7-18) mg/dL Creatinine 1.0 (0.8-1.3) mg/dL Est Cr Clr Drug Dosing 51.84 mL/min Estimated GFR (MDRD) > 60 (>60) Glucose 148 H (74-106) mg/dL Calcium 8.1 L (8.5-10.1) mg/dL Med Orders - Current: Current Medications Acetaminophen (Tylenol) 650 mg PO Q4H PRN PRN Reason: Pain (Mild 1-3)/fever Last Admin: 02/09/17 14:47 Dose: 650 mg Aspirin (Aspirin) 81 mg PO DAILY [facility] Last Admin: 02/13/17 09:16 Dose: Not Given Digoxin (Lanoxin) 125 mcg PO DAILY@1300 [facility] Last Admin: 02/12/17 13:07 Dose: 125 mcg Diltiazem HCl (Cardizem Cd) 180 mg PO DAILY [facility] Last Admin: 02/13/17 09:17 Dose: Not Given Finasteride (Proscar) 5 mg PO DAILY [facility] Last Admin: 02/13/17 09:17 Dose: Not Given Furosemide (Lasix) 20 mg PO DAILY [facility] Last Admin: 02/13/17 09:17 Dose: Not Given Guaifenesin/Dextromethorphan (Robitussin Dm) 10 ml PO Q4H PRN PRN Reason: Cough Last Admin: 02/12/17 04:31 Dose: 10 ml Ceftriaxone Sodium 2 gm/ (Sodium Chloride) 50 mls @ 100 mls/hr IV Q24H [facility] Last Admin: 02/12/17 13:55 Dose: 100 mls/hr Sodium Chloride (Normal Saline) 1,000 mls @ 25 mls/hr IV ASDIRECTED [facility] Last Admin: 02/11/17 20:25 Dose: 25 mls/hr Levofloxacin/Dextrose 750 mg/ (Premix) 150 mls @ 100 mls/hr IV Q24H [facility] Last Admin: 02/12/17 11:10 Dose: 100 mls/hr Lactobacillus Rhamnosus (Culturelle) 1 cap PO BID [facility] Last Admin: 02/13/17 09:17 Dose: Not Given Levalbuterol HCl (Xopenex) 1.25 mg NEB Q4H PRN PRN Reason: Wheezing Last Admin: 02/12/17 02:05 Dose: 1.25 mg Levalbuterol HCl (Xopenex) 1.25 mg NEB QIDRT [facility] Last Admin: 02/13/17 07:07 Dose: 1.25 mg Methylprednisolone Sodium Succinate (Solu-Medrol) 40 mg IVPUSH Q12H [facility] Metoprolol Succinate (Toprol Xl) 50 mg PO BID [facility] Last Admin: 02/13/17 09:17 Dose: Not Given Morphine Sulfate (Morphine) 2 mg IVPUSH Q2H PRN PRN Reason: Pain (severe 7-10) Ondansetron HCl (Zofran Odt) 4 mg PO Q6H PRN PRN Reason: Nausea able to take PO Oxybutynin Chloride (Oxybutynin) 2.5 mg PO BID [facility] Last Admin: 02/13/17 09:17 Dose: Not Given Polyethylene Glycol (Miralax) 17 gm PO DAILY PRN PRN Reason: Constipation Last Admin: 02/10/17 22:11 Dose: 17 gm Ranitidine HCl (Zantac) 150 mg PO DAILY [facility] Last Admin: 02/13/17 09:17 Dose: Not Given Senna/Docusate Sodium (Senna Plus) 1 tab PO BID PRN PRN Reason: Constipation Last Admin: 02/09/17 21:25 Dose: 1 tab Tamsulosin HCl (Flomax) 0.4 mg PO DAILY [facility] Last Admin: 02/13/17 09:17 Dose: Not Given Warfarin Sodium (Coumadin) 2.5 mg PO ONETIME ONE Stop: 02/13/17 09:45 Discontinued Medications Albuterol (Proventil Neb Soln) 2.5 mg NEB Q2H PRN PRN Reason: Shortness Of Breath/wheezing Albuterol/Ipratropium (Duoneb 3.0-0.5 Mg/3 Ml) 3 ml NEB ONETIME ONE Stop: 02/09/17 09:35 Last Admin: 02/09/17 09:43 Dose: 3 ml Albuterol/Ipratropium (Duoneb 3.0-0.5 Mg/3 Ml) 3 ml NEB QIDRT [facility] Last Admin: 02/09/17 14:49 Dose: 3 ml Aspirin (Aspirin) 324 mg PO ONETIME ONE Stop: 02/09/17 12:02 Last Admin: 02/09/17 12:15 Dose: 324 mg Bisacodyl (Dulcolax) 10 mg RECTAL ONETIME ONE Stop: 02/11/17 09:31 Last Admin: 02/11/17 09:13 Dose: 10 mg Diltiazem HCl (Cardizem) 30 mg PO Q6HR [facility] Last Admin: 02/13/17 04:45 Dose: 30 mg Furosemide (Lasix) 20 mg IVPUSH ONETIME ONE Stop: 02/10/17 09:01 Last Admin: 02/10/17 08:59 Dose: 20 mg Lactated Ringer's (Ringers, Lactated) 1,000 mls @ 125 mls/hr IV ASDIRECTED ONE Stop: 02/09/17 17:29 Last Admin: 02/09/17 09:58 Dose: 125 mls/hr Levofloxacin/Dextrose 750 mg/ (Premix) 150 mls @ 100 mls/hr IV Q24H [facility] Last Admin: 02/09/17 10:56 Dose: 100 mls/hr Lactated Ringer's (Ringers, Lactated) 1,000 mls @ 999 mls/hr IV .BOLUS ONE Stop: 02/09/17 13:49 Last Admin: 02/09/17 13:03 Dose: 999 mls/hr Levofloxacin/Dextrose 750 mg/ (Premix) 150 mls @ 100 mls/hr IV Q48H [facility] Stop: 02/10/17 13:00 Last Admin: 02/10/17 11:12 Dose: 100 mls/hr Sodium Chloride (Normal Saline) 1,000 mls @ 125 mls/hr IV ASDIRECTED [facility] Last Admin: 02/10/17 05:29 Dose: 125 mls/hr Lactated Ringer's (Ringers, Lactated) 1,000 mls @ 999 mls/hr IV BOLUS ONE Stop: 02/09/17 17:43 Last Admin: 02/09/17 17:00 Dose: 999 mls/hr Diltiazem HCl 100 mg/ Sodium (Chloride) 100 mls @ 5 mls/hr IV TITRATE [facility]; 5 MG /HR PRN Reason: Protocol Last Admin: 02/12/17 08:38 Dose: 15 mg/hr, 15 mls/hr Magnesium Sulfate 2 gm/ Premix 50 mls @ 25 mls/hr IV ONETIME ONE Stop: 02/10/17 10:59 Last Admin: 02/10/17 09:05 Dose: 25 mls/hr Methylprednisolone Sodium Succinate (Solu-Medrol) 125 mg IVPUSH ONETIME ONE Stop: 02/09/17 13:31 Last Admin: 02/09/17 13:47 Dose: 125 mg Methylprednisolone Sodium Succinate (Solu-Medrol) 62.5 mg IVPUSH Q6H [facility] Last Admin: 02/13/17 07:59 Dose: 62.5 mg Metoprolol Tartrate (Lopressor) 25 mg PO Q8H [facility] Last Admin: 02/13/17 06:58 Dose: 25 mg Metoprolol Tartrate (Lopressor) 25 mg PO ONETIME ONE Stop: 02/09/17 15:16 Last Admin: 02/09/17 15:35 Dose: 25 mg Nitroglycerin (Nitrostat) 0.4 mg SL ONETIME ONE Stop: 02/09/17 15:11 Last Admin: 02/09/17 15:18 Dose: 0.4 mg Phytonadione (Aquamephyton) 2.5 mg PO ONETIME ONE Stop: 02/10/17 08:38 Last Admin: 02/10/17 08:59 Dose: 2.5 mg Sodium Chloride (Saline Flush) 10 ml FLUSH ASDIRECTED PRN PRN Reason: Keep Vein Open Last Admin: 02/09/17 09:43 Dose: 10 ml Warfarin Sodium (Coumadin) 2.5 mg PO ONETIME ONE Stop: 02/11/17 13:01 Last Admin: 02/11/17 13:11 Dose: 2.5 mg Warfarin Sodium (Coumadin) 5 mg PO ONETIME ONE Stop: 02/12/17 13:01 Last Admin: 02/12/17 13:08 Dose: 5 mg - Exam Quality Assessment: supplemental oxygen, DVT prophylaxis General: alert, cooperative, mild distress Lungs: Decreased breath sounds, Wheezing. No: Crackles, Rales, Rhonchi, Rub, Stridor Cardiovascular: Regular Rate, No Murmurs, Irregular Rhythm Abdomen: bowel sounds present, soft, no tenderness, no distension Extremities: no edema Skin: warm, dry, intact - Problem List Review Problem List Initiated/Reviewed/Updated: Yes - My Orders Last 24 Hours: My Active Orders 02/12/17 11:00 Furosemide [Lasix] 20 mg PO DAILY 02/13/17 09:00 Diltiazem [Cardizem CD] 180 mg PO DAILY Metoprolol Succinate [Toprol XL] 50 mg PO BID 02/13/17 09:44 Warfarin [Coumadin] 2.5 mg PO ONETIME ONE 02/13/17 09:45 Consult to Physical Therapy [PT Evaluation and Treatment] [CONS] Routine methylPREDNISolone Sod Succ [Solu-MEDROL] 40 mg IVPUSH Q12H 02/14/17 05:00 BASIC METABOLIC PANEL,BMP [CHEM] Timed 02/14/17 05:11 INR,PT,PROTHROMBIN TIME [COAG] AM - Plan Plan:: ASSESSMENT AND PLAN - Right lung pneumonia with sepsis syndrome - continued slow improvement, he is very depressed today and wants to consider switch to comfort only -Levofloxacin and ceftriaxone -IV fluids at tko -Scheduled and as needed nebs -Followup blood cultures (no growth so far) -followup Sputum culture (no growth so far) -Supplemental oxygen Non-ST elevation myocardial infarction - no complaints of chest pain at this time. Blood pressure has been stable. He is receiving a beta hunter and aspirin as discussed below. He was not interested in aggressive intervention given his advanced age and poor functional status at presentation. -Daily aspirin -I did not add additional anticoagulation because of his current warfarin use -Additional medical management including beta hunter Atrial fibrillation with rapid ventricular response - heart rate has remained stable since yesterday, we'll plan to transition to oral diltiazem today -Continue beta hunter -Continue digoxin -Cardiac monitoring -Discontinue diltiazem infusion -Transitioned to oral diltiazem 30 mg by mouth every 6 hours -Warfarin 2.5 mg by mouth today -INR in the morning Stage III chronic kidney disease - kidney function near baseline at this time. Palliative Care-he does not want aggressive interventions and is currently considering a move to comfort cares only. Maintenance issues - - DVT prophylaxis - warfarin - GI prophylaxis - PPI - Nutrition - heart healthy diet - Jimenez catheter - not currently indicated but could be considered Disposition - anticipate discharge back to the assisted living or possibly the [facility] after the hospital stay
[2017-02-13] MEDS: Levofloxacin/Dextrose 5%-Water 750 MG in Premix Bag 1 BAG IV SCH (10:20)
[2017-02-13] MEDS ORDERED: Warfarin 2.5 MG Tab PO ONE (13:00)
[2017-02-13] MEDS: Digoxin 125 MCG Tab PO SCH (13:07)
[2017-02-13] MEDS: cefTRIAXone 2 GM in Sodium Chloride 0.9% 50 ML IV SCH (13:07)
[2017-02-13] MEDS: methylPREDNISolone Sodium Succinate 40 MG/1 ML SDV IVPUSH SCH (21:10)
[2017-02-14] MEDS: Morphine 2 MG/ML Syringe IVPUSH PRN ×2 (01:17→05:10)
[2017-02-14] MEDS: Levalbuterol HCl 1.25 MG/3 ML Neb NEB SCH ×4 (07:05→21:05)
[2017-02-14] MEDS: guaiFENesin/Dextromethorphan 100-10 MG/5 ML Soln 10 ML Cup PO PRN (07:28)
[2017-02-14] MEDS: methylPREDNISolone Sodium Succinate 40 MG/1 ML SDV IVPUSH SCH (08:01)
[2017-02-14] MEDS: Metoprolol Succinate 50 MG Tab.ER PO SCH ×2 (08:11→20:58)
[2017-02-14] MEDS: Diltiazem 180 MG Cap.CD PO SCH (08:11)
[2017-02-14] MEDS: Tamsulosin 0.4 MG Cap.ER PO SCH (08:13)
[2017-02-14] MEDS: Aspirin 81 MG Tab.Chew PO SCH (08:13)
[2017-02-14] MEDS: Furosemide 20 MG Tab PO SCH (08:13)
[2017-02-14] MEDS: Lactobacillus Rhamnosus GG (Probiotic) Cap PO SCH ×2 (08:13→20:57)
[2017-02-14] MEDS: Finasteride 5 MG Tab PO SCH (08:13)
[2017-02-14] MEDS: Oxybutynin 5 MG Tab PO SCH ×2 (08:13→20:57)
[2017-02-14] MEDS: Polyethylene Glycol 3350 Powder 17 GM Packet PO PRN (08:14)
--- NOTE | 2017-02-14 09:28 | PCM.PN ---
- General Info Date of Service: 02/14/17 Functional Status: Reports: pain controlled, tolerating diet, urinating - Review of Systems General: Reports: Weakness. Denies: Fever, Chills Pulmonary: Reports: shortness of breath. Denies: pleuritic chest pain, cough, sputum, hemoptysis Cardiovascular: Reports: No Symptoms Gastrointestinal: Reports: No symptoms Systems Review Comment:: This patient has had some increase in heart rate over the past 24 hours, doses of medications have been adjusted this morning. Yesterday morning has been talking about not wanting to pursue ongoing aggressive interventions and care and considering comfort cares and possibly hospice. He did have several discussions with family yesterday concerning this but has not yet made a decision. Other than the increase in heart rate is well since the been stable and he has remained afebrile. Continues to have some peripheral edema. - Patient Data Vitals - most recent: Last Vital Signs Temp 96.8 F 02/14/17 08:00 Pulse 123 H 02/14/17 08:11 Resp 18 02/14/17 08:00 BP 168/112 H 02/14/17 08:11 Pulse Ox 94 L 02/14/17 08:00 Weight - most recent: 198 lb 12.8 oz I&O - last 24 hours: Intake & Output 02/13/17 02/14/17 02/14/17 22:59 06:59 14:59 Intake Total 534 Output Total 200 Balance 334 Lab Results last 24 hrs: Laboratory Results - last 24 hr 02/14/17 02/14/17 Range/Units 05:14 05:14 PT 49.8 H (9.5-12.0) sec INR 4.49 H* (0.80-1.20) Sodium 135 L (140-148) mmol/L Potassium 4.5 (3.6-5.2) mmol/L Chloride 100 (100-108) mmol/L Carbon Dioxide 28 (21-32) mmol/L Anion Gap 11.5 (5.0-14.0) mmol/L BUN 28 H (7-18) mg/dL Creatinine 0.9 (0.8-1.3) mg/dL Est Cr Clr Drug Dosing 57.59 mL/min Estimated GFR (MDRD) > 60 (>60) Glucose 153 H (74-106) mg/dL Calcium 8.0 L (8.5-10.1) mg/dL Med Orders - Current: Current Medications Acetaminophen (Tylenol) 650 mg PO Q4H PRN PRN Reason: Pain (Mild 1-3)/fever Last Admin: 02/09/17 14:47 Dose: 650 mg Aspirin (Aspirin) 81 mg PO DAILY [facility] Last Admin: 02/14/17 08:13 Dose: 81 mg Digoxin (Lanoxin) 125 mcg PO DAILY@1300 [facility] Last Admin: 02/13/17 13:07 Dose: 125 mcg Diltiazem HCl (Cardizem Cd) 240 mg PO DAILY [facility] Finasteride (Proscar) 5 mg PO DAILY [facility] Last Admin: 02/14/17 08:13 Dose: 5 mg Guaifenesin/Dextromethorphan (Robitussin Dm) 10 ml PO Q4H PRN PRN Reason: Cough Last Admin: 02/14/17 07:28 Dose: 10 ml Lactobacillus Rhamnosus (Culturelle) 1 cap PO BID [facility] Last Admin: 02/14/17 08:13 Dose: 1 cap Levalbuterol HCl (Xopenex) 1.25 mg NEB Q4H PRN PRN Reason: Wheezing Last Admin: 02/12/17 02:05 Dose: 1.25 mg Levalbuterol HCl (Xopenex) 1.25 mg NEB QIDRT [facility] Last Admin: 02/14/17 07:05 Dose: 1.25 mg Metoprolol Succinate (Toprol Xl) 50 mg PO BID [facility] Last Admin: 02/14/17 08:11 Dose: 50 mg Ondansetron HCl (Zofran Odt) 4 mg PO Q6H PRN PRN Reason: Nausea able to take PO Oxybutynin Chloride (Oxybutynin) 2.5 mg PO BID [facility] Last Admin: 02/14/17 08:13 Dose: 2.5 mg Polyethylene Glycol (Miralax) 17 gm PO DAILY PRN PRN Reason: Constipation Last Admin: 02/14/17 08:14 Dose: 17 gm Prednisone (Prednisone) 40 mg PO WITHBREAKFAST [facility] Ranitidine HCl (Zantac) 150 mg PO DAILY [facility] Last Admin: 02/14/17 08:13 Dose: 150 mg Senna/Docusate Sodium (Senna Plus) 1 tab PO BID PRN PRN Reason: Constipation Last Admin: 02/09/17 21:25 Dose: 1 tab Tamsulosin HCl (Flomax) 0.4 mg PO DAILY [facility] Last Admin: 02/14/17 08:13 Dose: 0.4 mg Discontinued Medications Albuterol (Proventil Neb Soln) 2.5 mg NEB Q2H PRN PRN Reason: Shortness Of Breath/wheezing Albuterol/Ipratropium (Duoneb 3.0-0.5 Mg/3 Ml) 3 ml NEB ONETIME ONE Stop: 02/09/17 09:35 Last Admin: 02/09/17 09:43 Dose: 3 ml Albuterol/Ipratropium (Duoneb 3.0-0.5 Mg/3 Ml) 3 ml NEB QIDRT [facility] Last Admin: 02/09/17 14:49 Dose: 3 ml Aspirin (Aspirin) 324 mg PO ONETIME ONE Stop: 02/09/17 12:02 Last Admin: 02/09/17 12:15 Dose: 324 mg Bisacodyl (Dulcolax) 10 mg RECTAL ONETIME ONE Stop: 02/11/17 09:31 Last Admin: 02/11/17 09:13 Dose: 10 mg Diltiazem HCl (Cardizem) 30 mg PO Q6HR [facility] Last Admin: 02/13/17 04:45 Dose: 30 mg Diltiazem HCl (Cardizem Cd) 180 mg PO DAILY [facility] Last Admin: 02/14/17 08:11 Dose: 180 mg Furosemide (Lasix) 20 mg IVPUSH ONETIME ONE Stop: 02/10/17 09:01 Last Admin: 02/10/17 08:59 Dose: 20 mg Furosemide (Lasix) 20 mg PO DAILY [facility] Last Admin: 02/14/17 08:13 Dose: 20 mg Lactated Ringer's (Ringers, Lactated) 1,000 mls @ 125 mls/hr IV ASDIRECTED ONE Stop: 02/09/17 17:29 Last Admin: 02/09/17 09:58 Dose: 125 mls/hr Levofloxacin/Dextrose 750 mg/ (Premix) 150 mls @ 100 mls/hr IV Q24H [facility] Last Admin: 02/09/17 10:56 Dose: 100 mls/hr Lactated Ringer's (Ringers, Lactated) 1,000 mls @ 999 mls/hr IV .BOLUS ONE Stop: 02/09/17 13:49 Last Admin: 02/09/17 13:03 Dose: 999 mls/hr Levofloxacin/Dextrose 750 mg/ (Premix) 150 mls @ 100 mls/hr IV Q48H [facility] Stop: 02/10/17 13:00 Last Admin: 02/10/17 11:12 Dose: 100 mls/hr Sodium Chloride (Normal Saline) 1,000 mls @ 125 mls/hr IV ASDIRECTED [facility] Last Admin: 02/10/17 05:29 Dose: 125 mls/hr Ceftriaxone Sodium 2 gm/ (Sodium Chloride) 50 mls @ 100 mls/hr IV Q24H [facility] Last Admin: 02/13/17 13:07 Dose: 100 mls/hr Lactated Ringer's (Ringers, Lactated) 1,000 mls @ 999 mls/hr IV BOLUS ONE Stop: 02/09/17 17:43 Last Admin: 02/09/17 17:00 Dose: 999 mls/hr Diltiazem HCl 100 mg/ Sodium (Chloride) 100 mls @ 5 mls/hr IV TITRATE [facility]; 5 MG /HR PRN Reason: Protocol Last Admin: 02/12/17 08:38 Dose: 15 mg/hr, 15 mls/hr Magnesium Sulfate 2 gm/ Premix 50 mls @ 25 mls/hr IV ONETIME ONE Stop: 02/10/17 10:59 Last Admin: 02/10/17 09:05 Dose: 25 mls/hr Sodium Chloride (Normal Saline) 1,000 mls @ 25 mls/hr IV ASDIRECTED [facility] Last Admin: 02/11/17 20:25 Dose: 25 mls/hr Levofloxacin/Dextrose 750 mg/ (Premix) 150 mls @ 100 mls/hr IV Q24H [facility] Last Admin: 02/13/17 10:20 Dose: 100 mls/hr Methylprednisolone Sodium Succinate (Solu-Medrol) 125 mg IVPUSH ONETIME ONE Stop: 02/09/17 13:31 Last Admin: 02/09/17 13:47 Dose: 125 mg Methylprednisolone Sodium Succinate (Solu-Medrol) 62.5 mg IVPUSH Q6H [facility] Last Admin: 02/13/17 07:59 Dose: 62.5 mg Methylprednisolone Sodium Succinate (Solu-Medrol) 40 mg IVPUSH Q12H [facility] Last Admin: 02/14/17 08:01 Dose: 40 mg Metoprolol Tartrate (Lopressor) 25 mg PO Q8H [facility] Last Admin: 02/13/17 06:58 Dose: 25 mg Metoprolol Tartrate (Lopressor) 25 mg PO ONETIME ONE Stop: 02/09/17 15:16 Last Admin: 02/09/17 15:35 Dose: 25 mg Morphine Sulfate (Morphine) 2 mg IVPUSH Q2H PRN PRN Reason: Pain (severe 7-10) Last Admin: 02/14/17 05:10 Dose: 2 mg Nitroglycerin (Nitrostat) 0.4 mg SL ONETIME ONE Stop: 02/09/17 15:11 Last Admin: 02/09/17 15:18 Dose: 0.4 mg Phytonadione (Aquamephyton) 2.5 mg PO ONETIME ONE Stop: 02/10/17 08:38 Last Admin: 02/10/17 08:59 Dose: 2.5 mg Sodium Chloride (Saline Flush) 10 ml FLUSH ASDIRECTED PRN PRN Reason: Keep Vein Open Last Admin: 02/09/17 09:43 Dose: 10 ml Warfarin Sodium (Coumadin) 2.5 mg PO ONETIME ONE Stop: 02/11/17 13:01 Last Admin: 02/11/17 13:11 Dose: 2.5 mg Warfarin Sodium (Coumadin) 5 mg PO ONETIME ONE Stop: 02/12/17 13:01 Last Admin: 02/12/17 13:08 Dose: 5 mg Warfarin Sodium (Coumadin) 2.5 mg PO ONETIME ONE Stop: 02/13/17 13:01 Last Admin: 02/13/17 13:07 Dose: 2.5 mg - Exam Quality Assessment: supplemental oxygen, DVT prophylaxis General: alert, cooperative Lungs: Normal respiratory effort, Decreased breath sounds, Wheezing. No: Crackles, Rales, Rhonchi Cardiovascular: No Murmurs, Irregular Rhythm, Tachycardia. No: Bradycardia Abdomen: bowel sounds present, soft, no tenderness, no distension Extremities: edema Skin: warm, dry, intact - Problem List Review Problem List Initiated/Reviewed/Updated: Yes - My Orders Last 24 Hours: My Active Orders 02/13/17 09:00 Metoprolol Succinate [Toprol XL] 50 mg PO BID 02/13/17 09:45 Consult to Physical Therapy [PT Evaluation and Treatment] [CONS] Routine 02/14/17 09:15 Cardiac Monitoring [RC] .As Directed 02/14/17 09:22 Vital Signs [RC] Q4H Convert IV to Saline Lock [OM.PC] Routine 02/14/17 09:30 Levofloxacin [Levaquin] 750 mg PO Q24H 02/14/17 12:00 predniSONE 40 mg PO WITHBREAKFAST 02/14/17 16:00 Furosemide [Lasix] 40 mg IVPUSH NOW ONE 02/15/17 05:00 BASIC METABOLIC PANEL,BMP [CHEM] Timed CBC WITH AUTO DIFF [HEME] Timed INR,PT,PROTHROMBIN TIME [COAG] Timed 02/15/17 08:00 Furosemide [Lasix] 20 mg IVPUSH NOW ONE 02/15/17 09:00 Diltiazem [Cardizem CD] 240 mg PO DAILY - Plan Plan:: ASSESSMENT AND PLAN - Right lung pneumonia with sepsis syndrome - continued slow improvement, he is very depressed today and wants to consider switch to comfort only. He'll be discussing this with family and has not yet made the final decision. -Levofloxacin -Saline lock IV -Scheduled and as needed nebs -Followup blood cultures (no growth so far) -followup Sputum culture (no growth so far) -Supplemental oxygen Non-ST elevation myocardial infarction - no complaints of chest pain at this time. Blood pressure has been stable. He is receiving a beta hunter and aspirin as discussed below. He was not interested in aggressive intervention given his advanced age and poor functional status at presentation. -Daily aspirin -I did not add additional anticoagulation because of his current warfarin use -Additional medical management including beta hunter Atrial fibrillation with rapid ventricular response - heart rate is increased over the past 24 hours, will increase dose of oral diltiazem. INR is elevated above therapeutic range -Continue beta hunter -Continue digoxin -Cardiac monitoring -Diltiazem 240 mg by mouth daily -Hold warfarin today -INR in the morning Stage III chronic kidney disease - kidney function near baseline at this time. He has had increase in peripheral edema -Furosemide 40 mg IV later today -Furosemide 20 mg IV in a.m. Palliative Care-he does not want aggressive interventions and is currently considering a move to comfort cares only. Maintenance issues - - DVT prophylaxis - warfarin - GI prophylaxis - PPI - Nutrition - heart healthy diet - Jimenez catheter - not currently indicated but could be considered Disposition - anticipate discharge to [facility] after hospital stay
[2017-02-14] MEDS: Levofloxacin 250 MG Tab PO SCH (10:21)
[2017-02-14] MEDS: predniSONE 20 MG Tab PO SCH (12:15)
[2017-02-14] MEDS: Digoxin 125 MCG Tab PO SCH (12:15)
[2017-02-14] MEDS: Morphine 10 MG/0.5 ML Oral Syringe PO PRN ×2 (13:54→15:55)
[2017-02-14] MEDS ORDERED: Furosemide 40 MG/4 ML VIAL IVPUSH ONE (16:00)
[2017-02-15] MEDS ORDERED: Phytonadione 1 MG in Sodium Chloride 0.9% 50 ML IV ONE (06:10)
[2017-02-15] MEDS: Levalbuterol HCl 1.25 MG/3 ML Neb NEB SCH ×3 (07:26→14:48)
[2017-02-15] MEDS ORDERED: Furosemide 40 MG/4 ML VIAL IVPUSH ONE (08:00)
[2017-02-15] MEDS ORDERED: Furosemide 20 MG/2 ML VIAL IVPUSH ONE (08:00)
[2017-02-15] MEDS: Aspirin 81 MG Tab.Chew PO SCH (08:08)
[2017-02-15] MEDS: predniSONE 20 MG Tab PO SCH (08:08)
[2017-02-15] MEDS: Lactobacillus Rhamnosus GG (Probiotic) Cap PO SCH (08:10)
[2017-02-15] MEDS: Tamsulosin 0.4 MG Cap.ER PO SCH (08:11)
[2017-02-15] MEDS: Oxybutynin 5 MG Tab PO SCH (08:12)
[2017-02-15] MEDS: Metoprolol Succinate 50 MG Tab.ER PO SCH (08:13)
[2017-02-15] MEDS: Finasteride 5 MG Tab PO SCH (08:13)
[2017-02-15] MEDS ORDERED: Diltiazem 120 MG Cap.CD PO SCH (09:00)
[2017-02-15] MEDS: Levofloxacin 250 MG Tab PO SCH ×2 (10:51→12:03)
[2017-02-15] MEDS ORDERED: Sodium Phosphate,Monobasic/Sodium Phosphate,Dibasic Enema 133 ML Bottle RECTAL PRN (11:38)
[2017-02-15] MEDS ORDERED: Bisacodyl 10 MG Supp RECTAL ONE (12:00)
[2017-02-15] MEDS: Digoxin 125 MCG Tab PO SCH (12:04)
--- NOTE | 2017-02-15 12:40 | PCM.DCSUM1 ---
Discharge Summary - Hospital Course Brief History: This patient is an 89-year-old gentleman who was admitted through the emergency department with progressive weakness, shortness of breath , and cough, secondary to pneumonia. - Discharge Data Discharge Date: 02/15/17 Discharge Disposition: DC/Tfer to SNF 03 Condition: Fair - Discharge Diagnosis/Problem(s) (1) Atrial fibrillation with rapid ventricular response SNOMED Code(s): 019129586254491 ICD Code: I48.91 - UNSPECIFIED ATRIAL FIBRILLATION Status: Acute Current Visit: Yes (2) NSTEMI (non-ST elevated myocardial infarction) SNOMED Code(s): 989894128 ICD Code: I21.4 - NON-ST ELEVATION (NSTEMI) MYOCARDIAL INFARCTION Status: Acute Current Visit: Yes (3) Sepsis SNOMED Code(s): 04804235 ICD Code: A41.9 - SEPSIS, UNSPECIFIED ORGANISM Status: Acute Current Visit: Yes Qualifiers: Sepsis type: sepsis due to unspecified organism Qualified Code(s): A41.9 - Sepsis, unspecified organism (4) Pneumonia SNOMED Code(s): 702500804 ICD Code: J18.9 - PNEUMONIA, UNSPECIFIED ORGANISM Status: Acute Priority : Medium Current Visit: Yes Qualifiers: Pneumonia type: due to unspecified organism Laterality: right Lung location: lower lobe of lung Qualified Code(s): J18.1 - Lobar pneumonia, unspecified organism (5) Dementia without behavioral disturbance SNOMED Code(s): 68312695 ICD Code: F03.90 - UNSPECIFIED DEMENTIA WITHOUT BEHAVIORAL DISTURBANCE Status: Chronic Priority: High Current Visit: No Qualifiers: Dementia type: unspecified type Qualified Code(s): F03.90 - Unspecified dementia without behavioral disturbance - Patient Summary/Data Consults: Consultations 02/13/17 09:45 Consult to Physical Therapy [PT Evaluation and Treatment] [CONS] Routine Please Evaluate and Treat. PT Reason for Consult: Strengthening This query below is only for informational purposes and is not editable. Admission Diagnosis/Problem: Pneumonia Hospital Course: This patient is an 89-year-old gentleman who developed cough, shortness of breath, and progressive weakness. On evaluation in the emergency department was found to have right lung infiltrates and was also felt to be septic with elevated heart rate and borderline blood pressure. He was admitted to the intensive care unit and given IV fluids for management of hypotension and sepsis. Blood cultures were obtained at the time of admission and remained negative throughout his hospital stay. He was started on antibiotic therapy with Rocephin and levofloxacin. Hospital course was complicated by atrial fibrillation with rapid ventricular response. Initially he was treated with IV Cardizem and then later transitioned to oral Cardizem and metoprolol. He also experienced a non-ST segment elevation myocardial infarction during his hospital stay but was noted with elevated troponin levels shortly after admission. This was discussed with the patient and family and decision was made to not pursue aggressive intervention. He was treated medically and remained hemodynamically stable following that. Respiratory status slowly improved during his hospital stay and he will be discharged home on additional 3 days of oral antibiotic therapy. Patient did express the wish to consider comfort cares only, but by the time of discharge and not made a firm decision about how he would like to proceed with his cares. He currently is DNR/DNI. Activity will be as tolerated and he will resume usual home medications and diet. Followup chest x-ray will be ordered for 2 weeks to assure resolution of the infiltrate. Followup INR will be ordered for tomorrow Wednesdayfebruary 16. - Patient Instructions Diet: Usual Diet as Tolerated Activity: As Tolerated Other/Special Instructions: Followup chest x-ray in 2 weeks to ensure clearing of the infiltrate. INR tomorrow WednesdayFebruary 16 - Discharge Plan Prescriptions/Med Rec: Aspirin 81 mg PO DAILY #30 tab.chew Diltiazem HCl [Diltiazem ER] 240 mg PO DAILY #30 cap.er.deg Levofloxacin [Levaquin] 750 mg PO Q24H #3 tablet Metoprolol Succinate [Toprol XL] 50 mg PO BID #60 tab.er Home Medications: Home Meds Ascorbic Acid 500 mg PO BID 01/22/15 [History] Digoxin [Lanoxin] 125 mcg PO DAILY 01/22/15 [History] Finasteride [Proscar] 5 mg PO DAILY 01/22/15 [History] Glucosamine Sulfate 1,500 mg PO BID 01/22/15 [History] Tamsulosin HCl 0.4 mg PO DAILY 01/22/15 [History] Triamcinolone Acetonide [Triamcinolone Acetonide 0.1% Oint] 1 film TOP BID PRN 01/22/15 [History] Calcium Carbonate/Vitamin D3 [Calcium 600-Vit D3 400 Tablet] 1 tab PO DAILY [History] Furosemide 10 mg PO DAILY 03/12/16 [History] Warfarin Sodium 1 tab PO ASDIRECTED 03/12/16 [History] Warfarin [Coumadin] 1 tab PO ASDIRECTED 03/12/16 [History] Calcium Carbonate/Vitamin D3 [Calcium 600-Vit D3 800 Tablet] 1 each PO DAILY 09/04 [History] Cayenne 40,000 units PO BID 08/01/16 [History] Acetaminophen [Tylenol] 650 mg PO Q6H 02/07/17 [History] Ascorbic Acid [Vitamin C] 500 mg PO BID 02/07/17 [History] Ibuprofen [Motrin] 600 mg PO Q6H PRN 02/07/17 [History] Ondansetron [Zofran ODT] 4 mg PO Q8HR PRN 02/07/17 [History] Oxybutynin [Oxybutynin ER] 5 mg PO DAILY 02/07/17 [History] Ranitidine HCl 300 mg PO DAILY 02/07/17 [History] Aspirin 81 mg PO DAILY #30 tab.chew 02/15/17 [Rx] Diltiazem HCl [Diltiazem ER] 240 mg PO DAILY #30 cap.er.deg 02/15/17 [Rx] Levofloxacin [Levaquin] 750 mg PO Q24H #3 tablet 02/15/17 [Rx] Metoprolol Succinate [Toprol XL] 50 mg PO BID #60 tab.er 02/15/17 [Rx] Forms: ED Department Discharge Referrals: PCP,None [Primary Care Provider] - - Patient Data Vitals - Most Recent: Last Vital Signs Temp 98.3 F 02/15/17 10:52 Pulse 88 02/15/17 12:04 Resp 16 02/15/17 10:52 BP 139/112 H 02/15/17 10:52 Pulse Ox 96 02/15/17 10:52 Weight - Most Recent: 190 lb 1.6 oz I&O - Last 24 hours: Intake & Output 02/14/17 02/15/17 02/15/17 22:59 06:59 14:59 Intake Total 50 Output Total 7117 757 612 Balance -8478 -167 -037 Lab Results - Last 24 hrs: Laboratory Results - last 24 hr 0502/15/17 02/15/17 Range/Units 05:00 05:00 05:00 WBC 15.2 H (4.5-11.0) K/uL RBC 4.46 (4.30-5.90) M/uL Hgb 13.8 (12.0-15.0) g/dL Hct 41.0 (40.0-54.0) % MCV 92 (80-98) fL MCH 31 (27-31) pg MCHC 34 (32-36) % Plt Count 361 (150-400) K/uL Neut % (Auto) 92 H (36-66) % Lymph % (Auto) 2 L (24-44) % [place] % (Auto) 6 (2-6) % Eos % (Auto) 0 L (2-4) % Baso % (Auto) 0 (0-1) % PT 54.2 H (9.5-12.0) sec INR 4.87 H* (0.80-1.20) Sodium 137 L (140-148) mmol/L Potassium 4.5 (3.6-5.2) mmol/L Chloride 102 (100-108) mmol/L Carbon Dioxide 32 (21-32) mmol/L Anion Gap 7.5 (5.0-14.0) mmol/L BUN 30 H (7-18) mg/dL Creatinine 0.9 (0.8-1.3) mg/dL Est Cr Clr Drug Dosing 57.59 mL/min Estimated GFR (MDRD) > 60 (>60) Glucose 136 H (74-106) mg/dL Calcium 7.8 L (8.5-10.1) mg/dL Med Orders - Current: Current Medications Acetaminophen (Tylenol) 650 mg PO Q4H PRN PRN Reason: Pain (Mild 1-3)/fever Last Admin: 02/09/17 14:47 Dose: 650 mg Aspirin (Aspirin) 81 mg PO DAILY [facility] Last Admin: 02/15/17 08:08 Dose: 81 mg Digoxin (Lanoxin) 125 mcg PO DAILY@1300 [facility] Last Admin: 02/15/17 12:04 Dose: 125 mcg Diltiazem HCl (Cardizem Cd) 240 mg PO DAILY [facility] Last Admin: 02/15/17 08:09 Dose: 240 mg Finasteride (Proscar) 5 mg PO DAILY [facility] Last Admin: 02/15/17 08:13 Dose: 5 mg Guaifenesin/Dextromethorphan (Robitussin Dm) 10 ml PO Q4H PRN PRN Reason: Cough Last Admin: 02/14/17 07:28 Dose: 10 ml Lactobacillus Rhamnosus (Culturelle) 1 cap PO BID [facility] Last Admin: 02/15/17 08:10 Dose: 1 cap Levalbuterol HCl (Xopenex) 1.25 mg NEB Q4H PRN PRN Reason: Wheezing Last Admin: 02/12/17 02:05 Dose: 1.25 mg Levalbuterol HCl (Xopenex) 1.25 mg NEB QIDRT [facility] Last Admin: 02/15/17 11:05 Dose: 1.25 mg Levofloxacin (Levaquin) 750 mg PO Q24H [facility] Last Admin: 02/15/17 12:03 Dose: 750 mg Metoprolol Succinate (Toprol Xl) 50 mg PO BID [facility] Last Admin: 02/15/17 08:13 Dose: 50 mg Morphine Sulfate (Morphine 10 Mg/0.5 Ml Oral Syringe) 5 mg PO Q2H PRN PRN Reason: pain/SOB Last Admin: 02/14/17 15:55 Dose: 5 mg Ondansetron HCl (Zofran Odt) 4 mg PO Q6H PRN PRN Reason: Nausea able to take PO Oxybutynin Chloride (Oxybutynin) 2.5 mg PO BID [facility] Last Admin: 02/15/17 08:12 Dose: 2.5 mg Polyethylene Glycol (Miralax) 17 gm PO DAILY PRN PRN Reason: Constipation Last Admin: 02/14/17 08:14 Dose: 17 gm Prednisone (Prednisone) 40 mg PO WITHBREAKFAST [facility] Last Admin: 02/15/17 08:08 Dose: 40 mg Ranitidine HCl (Zantac) 150 mg PO DAILY [facility] Last Admin: 02/15/17 08:13 Dose: 150 mg Senna/Docusate Sodium (Senna Plus) 1 tab PO BID PRN PRN Reason: Constipation Last Admin: 02/09/17 21:25 Dose: 1 tab Sodium Biphosphate/Sodium Phosphate (Fleet Enema) 133 ml RECTAL ONETIME PRN PRN Reason: Constipation Tamsulosin HCl (Flomax) 0.4 mg PO DAILY [facility] Last Admin: 02/15/17 08:11 Dose: 0.4 mg Discontinued Medications Albuterol (Proventil Neb Soln) 2.5 mg NEB Q2H PRN PRN Reason: Shortness Of Breath/wheezing Albuterol/Ipratropium (Duoneb 3.0-0.5 Mg/3 Ml) 3 ml NEB ONETIME ONE Stop: 02/09/17 09:35 Last Admin: 02/09/17 09:43 Dose: 3 ml Albuterol/Ipratropium (Duoneb 3.0-0.5 Mg/3 Ml) 3 ml NEB QIDRT [facility] Last Admin: 02/09/17 14:49 Dose: 3 ml Aspirin (Aspirin) 324 mg PO ONETIME ONE Stop: 02/09/17 12:02 Last Admin: 02/09/17 12:15 Dose: 324 mg Bisacodyl (Dulcolax) 10 mg RECTAL ONETIME ONE Stop: 02/11/17 09:31 Last Admin: 02/11/17 09:13 Dose: 10 mg Bisacodyl (Dulcolax) 10 mg RECTAL ONETIME ONE Stop: 02/15/17 12:01 Last Admin: 02/15/17 11:59 Dose: 10 mg Diltiazem HCl (Cardizem) 30 mg PO Q6HR [facility] Last Admin: 02/13/17 04:45 Dose: 30 mg Diltiazem HCl (Cardizem Cd) 180 mg PO DAILY [facility] Last Admin: 02/14/17 08:11 Dose: 180 mg Furosemide (Lasix) 20 mg IVPUSH ONETIME ONE Stop: 02/10/17 09:01 Last Admin: 02/10/17 08:59 Dose: 20 mg Furosemide (Lasix) 20 mg PO DAILY [facility] Last Admin: 02/14/17 08:13 Dose: 20 mg Furosemide (Lasix) 40 mg IVPUSH ONETIME ONE Stop: 02/14/17 16:01 Last Admin: 02/14/17 16:22 Dose: 40 mg Furosemide (Lasix) 20 mg IVPUSH ONETIME ONE Stop: 02/15/17 08:01 Furosemide (Lasix) 20 mg IVPUSH ONETIME ONE Stop: 02/15/17 08:01 Last Admin: 02/15/17 08:14 Dose: 20 mg Lactated Ringer's (Ringers, Lactated) 1,000 mls @ 125 mls/hr IV ASDIRECTED ONE Stop: 02/09/17 17:29 Last Admin: 02/09/17 09:58 Dose: 125 mls/hr Levofloxacin/Dextrose 750 mg/ (Premix) 150 mls @ 100 mls/hr IV Q24H BJORN Last Admin: 02/09/17 10:56 Dose: 100 mls/hr Lactated Ringer's (Ringers, Lactated) 1,000 mls @ 999 mls/hr IV .BOLUS ONE Stop: 02/09/17 13:49 Last Admin: 02/09/17 13:03 Dose: 999 mls/hr Levofloxacin/Dextrose 750 mg/ (Premix) 150 mls @ 100 mls/hr IV Q48H BJORN Stop: 02/10/17 13:00 Last Admin: 02/10/17 11:12 Dose: 100 mls/hr Sodium Chloride (Normal Saline) 1,000 mls @ 125 mls/hr IV ASDIRECTED [facility] Last Admin: 02/10/17 05:29 Dose: 125 mls/hr Ceftriaxone Sodium 2 gm/ (Sodium Chloride) 50 mls @ 100 mls/hr IV Q24H [facility] Last Admin: 02/13/17 13:07 Dose: 100 mls/hr Lactated Ringer's (Ringers, Lactated) 1,000 mls @ 999 mls/hr IV BOLUS ONE Stop: 02/09/17 17:43 Last Admin: 02/09/17 17:00 Dose: 999 mls/hr Diltiazem HCl 100 mg/ Sodium (Chloride) 100 mls @ 5 mls/hr IV TITRATE BJORN; 5 MG /HR PRN Reason: Protocol Last Admin: 02/12/17 08:38 Dose: 15 mg/hr, 15 mls/hr Magnesium Sulfate 2 gm/ Premix 50 mls @ 25 mls/hr IV ONETIME ONE Stop: 02/10/17 10:59 Last Admin: 02/10/17 09:05 Dose: 25 mls/hr Sodium Chloride (Normal Saline) 1,000 mls @ 25 mls/hr IV ASDIRECTED [facility] Last Admin: 02/11/17 20:25 Dose: 25 mls/hr Levofloxacin/Dextrose 750 mg/ (Premix) 150 mls @ 100 mls/hr IV Q24H [facility] Last Admin: 02/13/17 10:20 Dose: 100 mls/hr Phytonadione 1 mg/ Sodium (Chloride) 50.5 mls @ 100 mls/hr IV ONETIME ONE Stop: 02/15/17 06:40 Last Admin: 02/15/17 06:45 Dose: 100 mls/hr Methylprednisolone Sodium Succinate (Solu-Medrol) 125 mg IVPUSH ONETIME ONE Stop: 02/09/17 13:31 Last Admin: 02/09/17 13:47 Dose: 125 mg Methylprednisolone Sodium Succinate (Solu-Medrol) 62.5 mg IVPUSH Q6H [facility] Last Admin: 02/13/17 07:59 Dose: 62.5 mg Methylprednisolone Sodium Succinate (Solu-Medrol) 40 mg IVPUSH Q12H [facility] Last Admin: 02/14/17 08:01 Dose: 40 mg Metoprolol Tartrate (Lopressor) 25 mg PO Q8H [facility] Last Admin: 02/13/17 06:58 Dose: 25 mg Metoprolol Tartrate (Lopressor) 25 mg PO ONETIME ONE Stop: 02/09/17 15:16 Last Admin: 02/09/17 15:35 Dose: 25 mg Morphine Sulfate (Morphine) 2 mg IVPUSH Q2H PRN PRN Reason: Pain (severe 7-10) Last Admin: 02/14/17 05:10 Dose: 2 mg Nitroglycerin (Nitrostat) 0.4 mg SL ONETIME ONE Stop: 02/09/17 15:11 Last Admin: 02/09/17 15:18 Dose: 0.4 mg Phytonadione (Aquamephyton) 2.5 mg PO ONETIME ONE Stop: 02/10/17 08:38 Last Admin: 02/10/17 08:59 Dose: 2.5 mg Sodium Chloride (Saline Flush) 10 ml FLUSH ASDIRECTED PRN PRN Reason: Keep Vein Open Last Admin: 02/09/17 09:43 Dose: 10 ml Warfarin Sodium (Coumadin) 2.5 mg PO ONETIME ONE Stop: 02/11/17 13:01 Last Admin: 02/11/17 13:11 Dose: 2.5 mg Warfarin Sodium (Coumadin) 5 mg PO ONETIME ONE Stop: 02/12/17 13:01 Last Admin: 05/26/17 13:08 Dose: 5 mg Warfarin Sodium (Coumadin) 2.5 mg PO ONETIME ONE Stop: 02/13/17 13:01 Last Admin: 02/13/17 13:07 Dose: 2.5 mg *Q Meaningful Use (DIS) - VTE *Q VTE Criteria *Q: - Stroke *Q Stroke Criteria *Q: - AMI *Q AMI Criteria *Q:
[2017-02-15 14:23] VITALS: BP 110/67
[2017-02-15] MEDS ORDERED: Sodium Phosphate,Monobasic/Sodium Phosphate,Dibasic Enema 133 ML Bottle RECTAL ONE (14:45)
[2017-02-15] MEDS: Morphine 10 MG/0.5 ML Oral Syringe PO PRN (15:27)
== END 2017-02-15 15:58 | DRG 871 ==
LOC: JP.ED 09:02 → JP.ICU 12:02 → JP.MS 02-14 10:35
PROVIDERS: ADMIT Internal Medicine; ATTEND Hospitalist
DX: A41.9 Sepsis, unspecified organism (principal); J18.1 Lobar pneumonia, unspecified organism; I21.4 Non-ST elevation (NSTEMI) myocardial infarction; N18.3 Chronic kidney disease, stage 3 (moderate); Z66 Do not resuscitate; I48.91 Unspecified atrial fibrillation; R05 Cough; R06.02 Shortness of breath; R50.9 Fever, unspecified; F03.90 Unspecified dementia, unspecified severity, without behavioral disturbance, psychotic disturbance, mood disturbance, and anxiety; I25.10 Atherosclerotic heart disease of native coronary artery without angina pectoris; N40.1 Benign prostatic hyperplasia with lower urinary tract symptoms; Z85.46 Personal history of malignant neoplasm of prostate; Z86.73 Personal history of transient ischemic attack (TIA), and cerebral infarction without residual deficits; Z95.0 Presence of cardiac pacemaker; I25.2 Old myocardial infarction; H91.90 Unspecified hearing loss, unspecified ear; H54.7 Unspecified visual loss; Z79.82 Long term (current) use of aspirin; Z79.01 Long term (current) use of anticoagulants; Z88.2 Allergy status to sulfonamides
CPT/HCPCS: 36415; 71020 ×2; 80053; 83605; 84484; 85025; 85610; 85730; 87040 ×2; 94640; 96361; 96365; 96366; 99285; J1956; J7050; J7120; J7620; 71010; 71010-26; 80048; 80162; 81001; 83735; 85027; 87070; 87205; 93005; 96367; 96375; 96376; 97162-GP; 99284; A9270-GY; J0696; J1940; J2270; J2920; J2930; J3430; J3475; J3490; J7030; J7040